=== PATIENT | female | born 1960 | race African-American/Black ===

== ENCOUNTER 2020-04-01 22:40 | Inpatient (IN) | payer MEDICARE, MEDICAID, SELFPAY ==
--- NOTE | ~2020-04-01 | XR_ITS ---
XR chest 2V DATE: 04/02/2020 00:09 INDICATION: Chest pain, shortness of breath TECHNIQUE: PA and lateral views COMPARISON: 04/09/2019 portable AP chest 04/09/2019 CT pulmonary scan FINDINGS: Mild cardiomegaly. No pulmonary infiltrate or consolidation or pleural effusion. Pulmonary vascularity appears within normal range. Status post cholecystectomy.. IMPRESSION: Cardiomegaly Reviewed, dictated and finalized at location A. IMPRESSION: Cardiomegaly
[2020-04-01 22:46] VITALS: BP 143/59; PULSE 113; RESP 13; TEMP 36.6; O2SAT 94
--- NOTE | 2020-04-01 22:47 | ED.GENADULT ---
HPI - General Adult General Chief complaint: Recheck/Abnormal Lab/Rx Stated complaint: HIGH SUGAR, FALLS, DIZZY Time Seen by Provider: 04/01/20 22:46 History of Present Illness HPI narrative: Light headedness, fatigue, sob for the past 4 months. She is concerned that her blood sugar has been high for this entire time, although she has not been checking it. She also feels that she has had a UTI for quite some time. Additionally she has a painful sore on her right ankle which will not go away. Related Data Home Medications Medication Instructions Recorded Confirmed alprazolam 2 mg PO DAILY PRN 04/02/20 04/02/20 hydrocodone-acetaminophen 1 tablet PO TID PRN 04/02/20 04/02/20 insulin glargine [Lantus U-100 80 unit SUBCUT QPM 04/02/20 04/02/20 Insulin] quetiapine 800 mg PO HS 04/02/20 04/02/20 Allergies Allergy/AdvReac Type Severity Reaction Status Date / Time No Known Allergies Allergy Unknown Unverified 04/01/20 22:42 Review of Systems Review of Systems: All systems reviewed & are unremarkable except as noted in HPI and below Constitutional: Constitutional: Reports fatigue, Denies fever(s) and Denies weakness Eyes: Eyes: Denies change in vision ENT: Reports dizziness Cardiovascular: Cardiovascular: Denies chest pain Respiratory: Respiratory: Reports dyspnea Gastrointestinal: Gastrointestinal: Denies abdominal pain, Denies nausea and Denies vomiting Genitourinary: Genitourinary: Reports nocturia and Reports dysuria Neurologic: Reports dizziness and Denies syncope [facility] Past Medical History Medical History Diabetes mellitus Peripheral neuropathy Family History Family History Mother History of blood clots Diabetes mellitus Hypertension Other Cerebrovascular accident Sibling Colon cancer Sibling Diabetes mellitus Hypertension Father Diabetes mellitus Social History Social History Alcohol intake: never Substance use: current Substance use type: marijuana Last use: 04/01/2020 Spiritual care concerns: No Exam Const: General: no acute distress, alert and ill appearing chronically Orientation/consciousness: patient oriented x3 HENMT: Head: normal to inspection Resp: Effort & Inspection: normal respiratory effort Auscultation: clear to auscultation bilaterally Cardio: Rate: tachycardic Rhythm: regular rhythm GI: GI Palp: Yes Soft to palpation and No Tenderness to palpation present (GI) Skin: General skin exam: normal color Neuro: General: patient oriented x3, moves all extremities, no focal motor deficits and CN's II-XI intact bilaterally Speech: normal speech Extrem: General: normal to inspection and no edema Course Vital Signs Vital signs: Vital Signs Temperature 36.6 C 04/01/20 22:46 Pulse Rate 113 H 04/01/20 22:46 Respiratory Rate 13 04/01/20 22:46 Blood Pressure 143/59 H 04/01/20 22:46 Pulse Oximetry 94 04/01/20 22:46 Temperature 36.4 C L 04/02/20 04:05 Pulse Rate 95 04/02/20 04:05 Respiratory Rate 20 04/02/20 04:05 Blood Pressure 108/47 L 04/02/20 04:05 Pulse Oximetry 100 04/02/20 04:05 Medical Decision Making MDM Narrative Medical decision making narrative: She has severe anemia and thrombocytopenia without any h/o bleeding. I will plan to tranfuse her and admit her for further evalutiona Medical Records Medical records reviewed: Yes I reviewed the patient's medical records. Vital Signs Vital Signs: Vital Signs Temperature 36.6 C 04/01/20 22:46 Pulse Rate 113 H 04/01/20 22:46 Respiratory Rate 13 04/01/20 22:46 Blood Pressure 143/59 H 04/01/20 22:46 Pulse Oximetry 94 04/01/20 22:46 Temperature 36.4 C L 04/02/20 04:05 Pulse Rate 95 04/02/20 04:05 Respiratory Rate 20 04/02/20 04:05 Blood Pressure 108/47 L 04/02/20
[2020-04-01 22:52] LABS: Glucose Point of Care 102 (65-105)
[2020-04-01 23:29] VITALS: BP 122/80; PULSE 99; RESP 17; O2SAT 94
--- NOTE | 2020-04-01 23:38 | ECG_ITS ---
Measurements Intervals [place] Rate: 98 P: 53 MA: 149 QRS: 19 QRSD: 93 T: 27 QT: 362 QTc: 464 Interpretive Statements SINUS RHYTHM BORDERLINE ST-T WAVE ABNORMALITY- INFERIOR LEADS BASELINE WANDER- I, II, AVR, AVL, AVF BORDERLINE ECG Electronically Signed On 04-02-2020 7:25:01 CDT by Amador Crocker D.O.
[2020-04-01 23:46] LABS: Basophils Percent Auto 0.5 % (0.2-1.2); Eosinophils Absolute Auto 0.1 K/mm3 (0-0.3); Eosinophils Percent Auto 0.8 % (0-4.4); Immature Granulocyte Absolute 0.02 K/mm3 (0.00-0.031); Immature Granulocyte Percent A 0.3 % (0-0.5); Immature Platelet Fraction Pct 2.2 % (0.9-11.2); Lymphocytes Absolute Auto 1.83 K/mm3 (0.9-3.2); Lymphocytes Percent Auto 30.7 % (18.3-44.2); Mean Corpuscular HGB Conc 26.6 g/dl (32-36); Mean Corpuscular Hemoglobin 18.9 pg (26-34); Monocytes Absolute Auto 0.4 K/mm3 (0.1-0.6); Monocytes Percent Auto 6.9 % (2.6-8.5); Neutrophils Absolute Auto 3.6 K/mm3 (1.3-6.7); Neutrophils Percent Auto 60.8 % (45.5-73.1); Nucleated Red Blood Cells Perc 0.3 % (0.0-0.2); Platelet Count Result 89 k/mm3 (150-375); Red Blood Count 2.86 M/mm3 (4.2-5.4); Red Cell Distribution Width 33.4 % (11.5-14.5)
[2020-04-01 23:55] LABS: Alanine Aminotransferase 21 U/L (4-35); Alkaline Phosphatase 123 U/L (38-126); Aspartate Amino Transferase 33 U/L (14-36); Bilirubin,Total 0.1 mg/dL (0.2-1.3); Blood Urea Nitrogen 21 mg/dL (7-17); Calcium 8.9 mg/dL (8.4-10.2); Carbon Dioxide 24 mmol/L (22-30); Chloride 109 mmol/L (98-107); Estimated CRCL calculation 54 ml/min; Estimated Glomerular Filt Rate > 60; Glucose 90 mg/dL (65-105); Sodium 141 mmol/L (137-145)
[2020-04-01] MEDS: SODIUM CHLORIDE 0.9% IV 1,000 ML 999 ML IV CONT (23:59)
[2020-04-02] VITALS (26 sets, daily range): BP systolic 105–153; BP diastolic 39–82; PULSE 84–104; RESP 12–20; TEMP 36–37.1; O2SAT 93–100; BMI 28.1
[2020-04-02 00:08] LABS: Hematocrit 20.3 % (37.0-47.0); Hemoglobin 5.4 g/dL (12.0-15.0)
[2020-04-02 00:09] LABS: Platelet Estimate Decreased (Adequate)
[2020-04-02 00:10] LABS: Macrocytosis 1+ (NORMAL); Microcytosis 1+ (NORMAL); Ovalocytes 1+ (NORMAL)
[2020-04-02 00:11] LABS: Hypochromasia 1+ (NORMAL)
[2020-04-02 00:16] LABS: Add Urine Microscopic? YES; Appearance Urine Cloudy (Clear); Bacteria Urine Trace /hpf; Bilirubin Urine Negative (Negative); Blood Urine 1+ (Negative); Color Urine Yellow (Yellow); Glucose Urine UA Negative (Negative); Ketones Urine Negative (Negative); Leukocyte Esterase Ur 3+ LEU/UL (Negative); Mucus Urine Rare /lpf; Nitrate Urine Negative (Negative); Protein Urine 1+ mg/dL (Negative); Specific Grav Ur 1.017 (1.001-1.035); Squamous Epithelial Cell Urine Many /hpf (Few); WBC Urine >75 /hpf
[2020-04-02 00:20] LABS: Troponin I < 0.012 ng/mL (0.000-0.034)
[2020-04-02 00:49] LABS: Basophils Percent Auto 0.4 % (0.2-1.2); Eosinophils Absolute Auto 0.1 K/mm3 (0-0.3); Eosinophils Percent Auto 1.1 % (0-4.4); Immature Granulocyte Absolute 0.01 K/mm3 (0.00-0.031); Immature Granulocyte Percent A 0.2 % (0-0.5); Immature Platelet Fraction Pct 1.5 % (0.9-11.2); Lymphocytes Percent Auto 32.9 % (18.3-44.2); Mean Corpuscular HGB Conc 26.7 g/dl (32-36); Mean Corpuscular Hemoglobin 19.1 pg (26-34); Mean Corpuscular Volume 71.4 fl (80-100); Monocytes Absolute Auto 0.5 K/mm3 (0.1-0.6); Monocytes Percent Auto 9.1 % (2.6-8.5); Neutrophils Absolute Auto 3.1 K/mm3 (1.3-6.7); Neutrophils Percent Auto 56.3 % (45.5-73.1); Platelet Count Result 78 k/mm3 (150-375); Red Blood Count 2.41 M/mm3 (4.2-5.4); Red Cell Distribution Width 33.2 % (11.5-14.5); White Blood Count 5.5 K/mm3 (4.5-10.0)
[2020-04-02 01:13] LABS: Iron 167 ug/dL (37-170)
[2020-04-02 01:20] LABS: Hematocrit 17.2 % (37.0-47.0); Hemoglobin 4.6 g/dL (12.0-15.0)
[2020-04-02 01:22] LABS: Percent Iron Saturation 39 % (20-50)
[2020-04-02 01:22] LABS: Microcytosis 2+ (NORMAL); Platelet Estimate Decreased (Adequate)
[2020-04-02 01:23] LABS: Hypochromasia 2+ (NORMAL)
[2020-04-02 01:25] LABS: Anisocytosis 2+ (NORMAL); Macrocytosis 1+ (NORMAL)
[2020-04-02 01:30] LABS: Immature Reticulocyte Fraction 24.9 % (3.0-15.9); Reticulocyte Hemoglobin Conten 37.5 pg (28.2-35.7); Reticulocyte Percent 0.57 % (0.7-4.3); Reticulocytes Absolute 0.01 B/L (32.2-175.7)
[2020-04-02 01:49] LABS: Ferritin 8.29 ng/mL (11.1-264)
[2020-04-02 02:11] LABS: Hematocrit 17.5 % (37.0-47.0)
[2020-04-02 02:13] LABS: Hemoglobin 4.7 g/dL (12.0-15.0)
[2020-04-02] MEDS: SODIUM CHLORIDE 0.9% IV 250 ML 30 ML IV CONT (02:48)
--- NOTE | 2020-04-02 03:15 | PC.NURSE ---
This patient, Yeny Muniz, was admitted to IMU-. Patient oriented to hospital policies and general routines including ID bracelet, bed and alarms, visiting hours, pain management, procedures, bathroom and other care routines, personal items, smoking policy, room service/diet, and visiting hours. Valuables list has been completed. Patient encouraged to report perceived risks to care and to ask questions if they do not understand what they are told or what they should do.
--- NOTE | 2020-04-02 04:18 | PC.NURSE ---
During screening, pt states she has had suicidal thoughts recently, last a couple days ago. Pt reports she has no current, organized plan. Dr Cardoza notified and is placing orders to move to icu for suicide precautions. Sitter at bedside in imu currently until transfer occurs.
--- NOTE | 2020-04-02 04:18 | PM.IMHP ---
H&P: HPI History of Present Illness Chief complaint: symptomatic anemia Narrative: This is a 60 year old Diabetic female who presented to the hospital with a complaint of 4 months of generalized weakness which has worsened over the past two weeks. Tonight she is also complaining of increased shortness of breath. She reports eight falls over the past 4 months but isn't sure if she passed out or not. She had a bloody stool a few days ago but has been constipated. She also reports having dark emesis recently. She denies using any anticoagulants, NSAIDS, or aspirin. She has no previous history of PUD or previous GI bleeds. She denies any chest pain or shortness of breath. The patient denies any abdominal pain, dysuria, hematuria or vaginal bleeding. No other complaints. The patient admitted to her nurse that she has had suicidal ideation recently. The patient was evaluated in the ER and found to have an H/H of 4.7 and 17.5. Review of Systems Review of Systems: All systems reviewed & are unremarkable except as noted in HPI and below PMFSH Past Medical History Medical History Diabetes mellitus Peripheral neuropathy Family History Family History Mother History of blood clots Diabetes mellitus Hypertension Other Cerebrovascular accident Sibling Colon cancer Sibling Diabetes mellitus Hypertension Father Diabetes mellitus Social History Social History Smoking packs per day: 1 Smoking cigarettes per day: 20.0 Years smoked: 40 Smoking pack-years: 40.00 Smoking status: Heavy tobacco smoker Tobacco type: cigarettes Alcohol intake: never Substance use: current Substance use type: marijuana Last use: 04/01/2020 Spiritual care concerns: No Comments surgical history is reviewed and noncontributory. Meds Home Medications and Allergies Home Medications Medication Instructions Recorded Confirmed Type alprazolam 2 mg PO DAILY PRN 04/02/20 04/02/20 History hydrocodone-acetaminophen 1 tablet PO TID PRN 04/02/20 04/02/20 History insulin glargine [Lantus U-100 80 unit SUBCUT QPM 04/02/20 04/02/20 History Insulin] quetiapine 800 mg PO HS 04/02/20 04/02/20 History Allergies Allergy/AdvReac Type Severity Reaction Status Date / Time No Known Allergies Allergy Unknown Unverified 04/01/20 22:42 Vital Signs Vital Signs - 24 hr 04/01/20 22:46 04/01/20 23:29 04/02/20 01:30 Temperature 36.6 C Pulse Rate 113 H 99 96 Respiratory Rate 13 17 13 Blood Pressure 143/59 H 122/80 109/39 L Pulse Oximetry 94 94 93 04/02/20 02:31 04/02/20 02:51 04/02/20 03:03 Temperature 36.6 C 37.1 C Pulse Rate 104 H 104 H 98 Respiratory Rate 19 19 14 Blood Pressure 105/44 L 105/44 L 106/54 L Pulse Oximetry 93 93 94 04/02/20 03:20 04/02/20 04:05 Temperature 36.3 C L 36.4 C L Pulse Rate 99 95 Respiratory Rate 18 20 Blood Pressure 109/41 L 108/47 L Pulse Oximetry 100 100 Exam Const: General: cooperative, alert and awake Nutritional Appearance: well nourished Orientation/consciousness: patient oriented x3 HENMT: Head: normal to inspection General nose exam: Normal external nose present Face and sinus: normal facial exam Mouth: Yes Normal oral and palatal mucosa present and Yes oropharynx normal Eyes: Pupils: Equal, round and reactive pupils present EOM: EOMs intact bilaterally Neck: Neck: supple and no JVD Thyroid: thyroid normal Lymphatic: lymphadenopathy not noted Resp: Effort & Inspection: normal respiratory effort Auscultation: clear to auscultation bilaterally Cardio: Rate: regular rate Rhythm: regular rhythm Heart sounds: no murmurs GI: Inspection: normal to inspection Auscultation: normal bowel sounds Skin: General skin exam: normal color and no rashes or lesions noted Neuro: General: patient or
[2020-04-02] MEDS: DEXTROSE 50% 25 GM/50 ML SYRINGE IV PUSH ×2 (05:30→12:00)
[2020-04-02 05:51] LABS: Glucose Point of Care 141 (65-105)
[2020-04-02 05:51] LABS: Glucose Point of Care 52 (65-105)
--- NOTE | 2020-04-02 05:54 | PC.NURSE ---
This patient, Yeny Muniz, was transferred to [ICU-9 ] on 04/02/20 at 0500 for SI precautions. Personal belongings sent with patient and placed in locked cabinet. Belongings list checked and signed with receiving [ ]. No report necessary, RN caring for pt in IMU transferred with pt. Appropriate documentation sent with patient.
[2020-04-02 11:17] LABS: Hematocrit 23.2 % (37.0-47.0)
[2020-04-02 11:39] LABS: Hemoglobin 6.7 g/dL (12.0-15.0)
[2020-04-02 11:59] LABS: Glucose Point of Care 57 (65-105)
[2020-04-02 12:21] LABS: Glucose Point of Care 56 (65-105)
[2020-04-02 12:39] LABS: Glucose Point of Care 147 (65-105)
--- NOTE | 2020-04-02 13:19 | WPDGICN ---
Assessment and Plan Assessment and plan (1) Microcytic anemia: Code(s): D50.9 - Iron deficiency anemia, unspecified Status: Acute Assessment and Plan: Patient with very profound anemia on presentation. Microcytic indices noted. No significant GI bleeding described. Although she does report a small amount of bleeding after passing hard stool secondary to constipation. This seems insufficient to account for her current anemia. Iron studies reveal of low ferritin approximately 8. However iron and% saturation is within normal limits. Hemoglobin electrophoresis will therefore be obtained in follow-up stool Hemoccult will also be obtained. Plan is for both colonoscopy an EGD on Friday after . (2) UTI (urinary tract infection): Qualifiers: Hematuria presence: with hematuria Urinary tract infection type: site unspecified Qualified Code(s): N39.0 - Urinary tract infection, site not specified; R31.9 - Hematuria, unspecified Code(s): N39.0 - Urinary tract infection, site not specified Status: Acute Assessment and Plan: Patient with active urinary tract infection. Now on antibiotics. Culture results pending (3) Diabetes mellitus: Qualifiers: Diabetes mellitus type: type 2 Diabetes mellitus usp insulin use: with terminal clerk use Diabetes mellitus complication status: without complication Qualified Code(s): E11.9 - Type 2 diabetes mellitus without complications; Z79.4 - long-term (current) use of insulin Code(s): E11.9 - Type 2 diabetes mellitus without complications Status: Chronic (4) Peripheral neuropathy: Qualifiers: Peripheral neuropathy type: polyneuropathy, unspecified Qualified Code(s): G62.9 - Polyneuropathy, unspecified Code(s): G62.9 - Polyneuropathy, unspecified Status: Chronic (5) Thrombocytopenia: Code(s): D69.6 - Thrombocytopenia, unspecified Status: Acute Assessment and Plan: Very low platelet count identified etiology for this remains unclear. She may benefit from hematology evaluation at some point. (6) Family history of malignant neoplasm of colon in first degree relative diagnosed when younger than 60 years of age: Code(s): Z80.0 - Family history of malignant neoplasm of digestive organs Status: Acute Assessment and Plan: Patient's sibling had colon cancer. For this reason colonoscopy advised in addition to the indication because of constipation, rectal blood loss period and microcytic anemia. GI Consult Note Consult date/time: 04/02/20 13:19 HPI: Yeny Muniz is a 60 year old female seen in evaluation at the request of the hospitalist service. Because of profound anemia. Patient has a history of diabetes mellitus. Over the last 4 months she reports generalized weakness. It became particularly worse over the last 2 weeks. She notes increasing shortness of breath. She states she has been somewhat constipated and on 1 occasion after passing hard stool had a small blood on wiping. She denies any other abdominal pain. She has had some dysuria and difficulty urinating. She states 5 years ago had similar presentation GI endoscopy was performed and found to be unremarkable. At that time she was also anemic. She denies any family history of sickle cell or thalassemia. She has never been told she had an ulcer. Past medical history is significant for cholecystectomy. Diabetes mellitus. Total abdominal hysterectomy. History of thyroidectomy. She reports numbness in her feet associated with her diabetes PMFSH Past Medical History Medical History Diabetes mellitus Peripheral neuropathy Family History Family History Mother History of blood clots Diabetes mellitus Hypertension Other Cerebrovascular accident Sibling Colon cancer Sibling Diabe
--- NOTE | 2020-04-02 15:17 | PM.IMPN ---
Progress Note: A&P Assessment and Plan (1) Symptomatic anemia: Code(s): D64.9 - Anemia, unspecified Status: Acute Assessment and Plan: Transfuse 2 units plus 2 units of blood Pt to have EGD and colonscopy soon (2) GI bleeding: Qualifiers: GI bleed type/associated pathology: unspecified gastrointestinal hemorrhage type Qualified Code(s): K92.2 - Gastrointestinal hemorrhage, unspecified Code(s): K92.2 - Gastrointestinal hemorrhage, unspecified Status: Acute (3) Thrombocytopenia: Code(s): D69.6 - Thrombocytopenia, unspecified Status: Acute (4) Abnormal urinalysis: Code(s): R82.90 - Unspecified abnormal findings in urine Status: Acute (5) Diabetes mellitus: Qualifiers: Diabetes mellitus type: type 2 Diabetes mellitus [facility] insulin use: with intermediate manager use Diabetes mellitus complication status: without complication Qualified Code(s): E11.9 - Type 2 diabetes mellitus without complications; Z79.4 - termite exterminator (current) use of insulin Code(s): E11.9 - Type 2 diabetes mellitus without complications Status: Chronic (6) Peripheral neuropathy: Qualifiers: Peripheral neuropathy type: polyneuropathy, unspecified Qualified Code(s): G62.9 - Polyneuropathy, unspecified Code(s): G62.9 - Polyneuropathy, unspecified Status: Chronic (7) Suicidal ideation: Code(s): R45.851 - Suicidal ideations Status: Acute Assessment and Plan: The patient has verbalized her suicidal ideation to the nursing staff. Suicide precautions (8) Tobacco dependence: Code(s): F17.200 - Nicotine dependence, unspecified, uncomplicated Status: Chronic Assessment and Plan: Computer Systems Software Architect discussed smoking cessation Subjective Date/time seen: 04/02/20 15:17 Interval history: 60 year old Diabetic female who presented to the hospital with a complaint of 4 months of generalized weakness which has worsened over the past two weeks. SEen by big data analytics lead earlier this morning transferred to ICU for sucidal ideation Pt hb was very low on admission HB 4 improved to 6 with 2 units of blood Pt to receive another 2 units of blood Pt seen by Enedina jj plan is for both colonoscopy an EGD on Friday Review of Systems Review of Systems: All systems reviewed & are unremarkable except as noted in HPI and below Exam Const: General: cooperative, alert and awake Nutritional Appearance: well nourished Orientation/consciousness: patient oriented x3 Objective Data Vital Signs Vital Signs: Vital Signs - 24 hr 04/01/20 22:46 04/01/20 23:29 04/02/20 01:30 Temperature 36.6 C Pulse Rate 113 H 99 96 Respiratory Rate 13 17 13 Blood Pressure 143/59 H 122/80 109/39 L Pulse Oximetry 94 94 93 04/02/20 02:31 04/02/20 02:51 04/02/20 03:03 Temperature 36.6 C 37.1 C Pulse Rate 104 H 104 H 98 Respiratory Rate 19 19 14 Blood Pressure 105/44 L 105/44 L 106/54 L Pulse Oximetry 93 93 94 04/02/20 03:20 04/02/20 03:27 04/02/20 04:00 Temperature 36.3 C L Pulse Rate 99 98 97 Respiratory Rate 18 Blood Pressure 109/41 L Pulse Oximetry 100 04/02/20 04:05 04/02/20 04:55 04/02/20 06:00 Temperature 36.4 C L 36.1 C L Pulse Rate 95 94 87 Respiratory Rate 20 20 15 Blood Pressure 108/47 L 112/53 L 131/63 Pulse Oximetry 100 100 100 04/02/20 06:24 04/02/20 06:40 04/02/20 07:40 Temperature 36.3 C L 36.2 C L 36.1 C L Pulse Rate 87 89 86 Respiratory Rate 12 17 20 Blood Pressure 138/64 148/80 H 139/62 Pulse Oximetry 100 100 100 04/02/20 08:00 04/02/20 08:40 04/02/20 09:52 Temperature 36.6 C Pulse Rate 88 88 88 Respiratory Rate 18 20 Blood Pressure 153/72 H 149/68 H Pulse Oximetry 100 98 04/02/20 12:00 04/02/20 13:14 04/02/20 13:29 Temperature 36.4 C 37.0 C Pulse Rate 89 92 84 Respiratory Rate 18 16 18 Blood Pressure 137/67 150/61 H 136/59 L Pulse Oximetry 100 97 100 0
[2020-04-02 15:53] LABS: Immunochemical Fecal Occult Bl Negative (N)
[2020-04-02 15:54] LABS: IFOB Positive Control Positive
[2020-04-02 16:46] LABS: Glucose Point of Care 182 (65-105)
[2020-04-02 17:43] LABS: Hematocrit 32.5 % (37.0-47.0); Hemoglobin 9.8 g/dL (12.0-15.0)
--- NOTE | 2020-04-02 18:18 | PC.NURSE ---
Dr. Houston assessed patient and states patient does not need a sitter, discussed with ICU Director and Nurse Java Web Developer Wendy. Once Dr. Ca puts in her note that the patient does not need a sitter and discontinues the order patient will be off suicide precautions.
[2020-04-02 20:43] LABS: Glucose Point of Care 184 (65-105)
[2020-04-02 23:57] LABS: Hematocrit 30.4 % (37.0-47.0); Hemoglobin 9.3 g/dL (12.0-15.0)
[2020-04-03] VITALS: BP 156/78; PULSE 93; RESP 14; O2SAT 96
[2020-04-03 02:00] VITALS: PULSE 91
[2020-04-03 04:00] VITALS: BP 136/67; PULSE 90; PULSE 93; RESP 13
[2020-04-03 05:55] LABS: Glucose Point of Care 164 (65-105)
[2020-04-03 06:00] VITALS: PULSE 90
[2020-04-03 08:00] VITALS: BP 141/74; PULSE 89; PULSE 91; RESP 23; TEMP 36.8; O2SAT 97
[2020-04-03 10:00] VITALS: PULSE 90
[2020-04-03 11:39] LABS: Glucose Point of Care 232 (65-105)
[2020-04-03 11:50] LABS: Hematocrit 31.5 % (37.0-47.0); Hemoglobin 9.6 g/dL (12.0-15.0); Immature Platelet Fraction Pct 4.1 % (0.9-11.2); Mean Corpuscular HGB Conc 30.5 g/dl (32-36); Mean Corpuscular Hemoglobin 23.7 pg (26-34); Mean Corpuscular Volume 77.8 fl (80-100); Platelet Count Result 57 k/mm3 (150-375); Red Blood Count 4.05 M/mm3 (4.2-5.4); Red Cell Distribution Width 28.9 % (11.5-14.5)
[2020-04-03] MEDS: INSULIN ASPART (*BKC) 100 UNITS/ML SUB-Q (12:03)
[2020-04-03 12:21] LABS: Alanine Aminotransferase 22 U/L (4-35); Albumin Level 3.4 g/dL (3.5-5.1); Alkaline Phosphatase 113 U/L (38-126); Aspartate Amino Transferase 31 U/L (14-36); Bilirubin,Total 0.2 mg/dL (0.2-1.3); Blood Urea Nitrogen 14 mg/dL (7-17); Calcium 8.6 mg/dL (8.4-10.2); Carbon Dioxide 25 mmol/L (22-30); Chloride 106 mmol/L (98-107); Estimated CRCL calculation 84 ml/min; Estimated Glomerular Filt Rate > 60; Glucose 210 mg/dL (65-105); Potassium 4.9 mmol/L (3.4-5.0); Sodium 136 mmol/L (137-145)
[2020-04-03] MEDS: PEG (High)/E-LYTE SOLN 4,000 ML BTL 4000 ML PO (12:29)
--- NOTE | 2020-04-03 12:42 | PM.DS ---
DS: Admitting Diagnosis Admitting Diagnosis Admitting Diagnosis: Iron deficiency anemia, unspecified DS: Discharge Diagnosis Discharge Diagnosis (1) Symptomatic anemia: Code(s): D64.9 - Anemia, unspecified Status: Acute Assessment and Plan: Pt had 4 units of blood, pt hb improved from 4, 6 to 9 pt mention to go for EGD and colonscopy [place]. PT wants to leave AMA. (2) GI bleeding: Qualifiers: GI bleed type/associated pathology: unspecified gastrointestinal hemorrhage type Qualified Code(s): K92.2 - Gastrointestinal hemorrhage, unspecified Code(s): K92.2 - Gastrointestinal hemorrhage, unspecified Status: Acute Assessment and Plan: r/o acute upper GI Bleed. SP pRBC IV transfusion. Protonix IV drip. (3) Thrombocytopenia: Code(s): D69.6 - Thrombocytopenia, unspecified Status: Acute Assessment and Plan: r/o acute hemolysis. . (4) Abnormal urinalysis: Code(s): R82.90 - Unspecified abnormal findings in urine Status: Acute Assessment and Plan: r/o acute UTI. urine culture is pending. The patient has been started on ceftriaxone IV. (5) Diabetes mellitus: Qualifiers: Diabetes mellitus type: type 2 Diabetes mellitus loss control representative insulin use: with loss control representative use Diabetes mellitus complication status: without complication Qualified Code(s): E11.9 - Type 2 diabetes mellitus without complications; Z79.4 - director of curriculum (current) use of insulin Code(s): E11.9 - Type 2 diabetes mellitus without complications Status: Chronic Assessment and Plan: accuchecks, SSI Coverage, Hypoglycemic protocol. (6) Peripheral neuropathy: Qualifiers: Peripheral neuropathy type: polyneuropathy, unspecified Qualified Code(s): G62.9 - Polyneuropathy, unspecified Code(s): G62.9 - Polyneuropathy, unspecified Status: Chronic Assessment and Plan: Resume gabapentin when appropriate. (7) Suicidal ideation: Code(s): R45.851 - Suicidal ideations Status: Acute Assessment and Plan: The patient has verbalized her suicidal ideation to the nursing staff. Suicide precautions, One on one sitter. Crisis intervention in am. I assessed pt yesterday 04/02/2020 she did not appear SI or HI. Suicide precautions stopped yesterday 04/02/2020. (8) Tobacco dependence: Code(s): F17.200 - Nicotine dependence, unspecified, uncomplicated Status: Chronic DS: Summary Time Spent with Patient Time attestation: Total time spent providing and/or coordinating discharge services:15 minutes Exam Narrative: Exam Narrative: Pt left AMA DS: Data Data Completed and Pending Labs on day of discharge: Labs from last 24 hours 04/03/20 04/03/20 04/03/20 11:36 11:36 11:30 WBC 8.0 RBC 4.05 L Hgb 9.6 L Hct 31.5 L MCV 77.8 L D MCH 23.7 L D MCHC 30.5 L RDW 28.9 H Plt Count 57 L MPV TNP % Immature Plt Fraction 4.1 Hemoglobin A % Hemoglobin A2 Quant Hemoglobin C % Hemoglobin E % Hemoglobin F Percent Hemoglobin S % Hemoglobinopathy Red Blood Count Hemoglobinopathy Hct Hemoglobinopathy Hgb Hemoglobinopathy MCV Hemoglobinopathy MCH Hemoglobinopathy RDW Hemoglobinopathy Interp Hemoglobin Other Hemoglobin Other 2 Sodium 136 L Potassium 4.9 Chloride 106 Carbon Dioxide 25 BUN 14 D Creatinine 0.70 Estim Creat Clear Calc 84 Estimated GFR > 60 Glucose 210 H POC Capillary Glucose 232 H Calcium 8.6 Total Bilirubin 0.2 AST 31 ALT 22 Alkaline Phosphatase 113 Total Protein 7.0 Albumin 3.4 L Stl Occult Blood (IFOB) Blood Type Antibody Screen Crossmatch 04/03/20 04/02/20 04/02/20 05:54 23:36 20:40 WBC RBC Hgb 9.3 L Hct 30.4 L MCV MCH MCHC RDW Plt Count MPV % Immature Plt Fraction Hemoglobin A % Hemoglobin A2 Qu
--- NOTE | 2020-04-03 13:19 | PC.NURSE ---
Patient left ICU 9 with hospital staff at 1300. Patient left AMA, paperwork signed and placed in chart. Patient oriented x3. no complaints of dizziness, shortness of breath. IVs removed without complication, patient ambulated without assist.
--- NOTE | 2020-04-03 14:16 | PC.NURSE ---
Multiple attempts made to contact Dr. Rosen to advise patient left AMA. Called office number and recording states the office is closed for lunch, and to call back, office number does not forward to [employer]. used car sales supervisor, charge nurse, Dr. Houston all notified that patient left AMA.
[2020-04-10 00:01] LABS: Hematocrit 34.1 % (35.0-45.0); MCH 23.5 pg (27.0-33.0); RDW 32.2 % (11.0-15.0); Red Blood Cell Count 4.26 Mill/uL (3.80-5.10)
== END 2020-04-03 12:45 | disposition left against medical advice (07) | DRG 812 ==
LOC: ANHED 23:03 → ANHIMU 04-02 01:38 → ANHICU 04-02 06:32 → ANHIMU 04-06 13:17
PROVIDERS: Internal Medicine Gastroenterology; Admitting Provider Family Medicine; Emergency Provider Emergency Medicine; PCP Family Medicine; Visit Provider Family Medicine
DX: D64.9 Anemia, unspecified (principal); K92.2 Gastrointestinal hemorrhage, unspecified; R45.851 Suicidal ideations; N39.0 Urinary tract infection, site not specified; D69.6 Thrombocytopenia, unspecified; E11.9 Type 2 diabetes mellitus without complications; G62.9 Polyneuropathy, unspecified; F17.210 Nicotine dependence, cigarettes, uncomplicated; Z80.0 Family history of malignant neoplasm of digestive organs
CPT/HCPCS: 36415; 36430; 71046; 80053; 81001; 82274; 82607; 82728; 82746; 82948; 83021; 83540; 83550; 84484; 85014; 85018; 85025; 85027; 85046; 85055; 86850; 86900; 86901; 86920; 87086; 87088; 93005; 96361; 96365; 99285; A9270; C9113; J0696; J1815; J7030; J7050; J7060; P9016

== ENCOUNTER 2024-07-25 16:56 | Emergency (ER) | payer MEDICARE, MEDICAID, SELFPAY ==
[2024-07-25 16:57] VITALS: BP 182/81; PULSE 94; RESP 16; TEMP 36.8; O2SAT 100
--- NOTE | 2024-07-25 18:44 | ED.PSYCH ---
HPI - Psych General Chief Complaint: Psychiatric Symptoms <Oumou Ibarra PA-C - Last Filed: 07/26/24 17:14> Stated Complaint: suicidal with alot of pain <YAIR Youngblood Last Filed: 07/26/24 17:14> Time Seen by Provider: 07/25/24 17:57 <YAIR Youngblood Last Filed: 07/26/24 17:14> Source: patient <YAIR Youngblood Last Filed: 07/26/24 17:14> Mode of arrival: wheelchair <YAIR Youngblood Last Filed: 07/26/24 17:14> Limitations: no limitations <YAIR Youngblood Last Filed: 07/26/24 17:14> History of Present Illness HPI Narrative: This is a 64 year old female that presents to the ER for suicidal ideation. Reports she lost all of her medications while moving weeks ago. She has not taken any of her chronic medications for several weeks. Reports history of depression, diabetes mellitus. Reports chronic pain for which she takes narcotics. She has previous history of self harm. Does not have an active plan. Denies homicidal ideations or hallucinations. <YAIR Youngblood Last Filed: 07/26/24 17:14> Related Data Home Medications: Home Medications Medication Instructions Recorded Confirmed alprazolam 2 mg tablet 2 mg PO DAILY PRN Anxiety 04/02/20 04/02/20 hydrocodone 7.5 mg-acetaminophen 1 tablet PO TID PRN Pain (Scale 04/02/20 04/02/20 325 mg tablet Score 4-6) insulin glargine 100 unit/mL 80 unit subcut QPM 04/02/20 04/02/20 subcutaneous solution (Lantus U-100 Insulin) quetiapine 400 mg tablet 800 mg PO HS 04/02/20 04/02/20 <YAIR Youngblood Last Filed: 07/26/24 17:14> Allergies/Adverse Reactions: Allergies Allergy/AdvReac Type Severity Reaction Status Date / Time No Known Allergies Allergy Unknown Unverified 04/01/20 22:42 <YAIR Youngblood Last Filed: 07/26/24 17:14> Review of Systems Review of Systems: CONSTITUTIONAL: Denies fever PSYCHIATRIC: Reports depression. <Oumou Ibarra PA-C - Last Filed: 07/26/24 17:14> All systems reviewed & are unremarkable except as noted in HPI and below <Oumou Ibarra PA-C - Last Filed: 07/26/24 17:14> PMFSH Past Medical History Medical History: Medical History (Updated 07/26/24 @ 02:31 by Oumou Ibarra PA-C) Diabetes mellitus Peripheral neuropathy <Oumou Ibarra PA-C - Last Filed: 07/26/24 17:14> Family History Family History: Family History Mother History of blood clots Diabetes mellitus Hypertension Other Cerebrovascular accident Sibling Colon cancer Sibling Diabetes mellitus Hypertension Father Diabetes mellitus <Oumou Ibarra PA-C - Last Filed: 07/26/24 17:14> Social History Social History: Social History Smoking packs per day: 1 Smoking cigarettes per day: 20.0 Years smoked: 40 Smoking pack-years: 40.00 Smoking status: Heavy tobacco smoker Tobacco type: cigarettes Alcohol intake: never Substance use: current Substance use type: does not use Last use: 04/01/2020 Spiritual care concerns: No <Oumou Ibarra PA-C - Last Filed: 07/26/24 17:14> Exam Narrative: GENERAL: Well-appearing, well-nourished, and in no acute distress. HEAD: Normocephalic, atraumatic. EYES: EOMI. CHEST: No respiratory distress. HEART: Regular rate EXTREMITIES: Normal range of motion. No edema. SKIN: Warm, dry, no rash. NEURO: No focal deficits. Alert and oriented x3. PSYCH: Normal mood and affect <Oumou Ibarra PA-C - Last Filed: 07/26/24 17:14> Course Course Emergency Course: Patient is medically cleared for evaluation by crisis <Oumou Ibarra PA-C - Last Filed: 07/26/24 17:14> Consultations Consultation #1: Patient evaluated by crisis. Will be voluntarily placed <Oumou Ibarra PA-C - Last Filed: 07/26/24 17:14> Date: 07/26/24 <Oumou Ibarra,
[2024-07-25 18:48] LABS: Basophils Percent Auto 0.5 % (0.2-1.2); Eosinophils Absolute Auto 0.1 K/mm3 (0-0.3); Hematocrit 35.8 % (37.0-47.0); Hemoglobin 12.2 g/dL (12.0-15.0); Immature Granulocyte Absolute 0.01 K/mm3 (0.00-0.031); Immature Granulocyte Percent A 0.2 % (0-0.5); Lymphocytes Absolute Auto 2.44 K/mm3 (0.9-3.2); Lymphocytes Percent Auto 38.8 % (18.3-44.2); Mean Corpuscular HGB Conc 34.1 g/dl (32-36); Mean Corpuscular Hemoglobin 33.5 pg (26-34); Mean Corpuscular Volume 98.4 fl (80-100); Mean Platelet Volume 11.1 fl (7.4-10.4); Monocytes Absolute Auto 0.5 K/mm3 (0.1-0.6); Monocytes Percent Auto 7.9 % (2.6-8.5); Neutrophils Absolute Auto 3.3 K/mm3 (1.3-6.7); Neutrophils Percent Auto 51.6 % (45.5-73.1); Platelet Count Result 236 k/mm3 (150-375); Red Blood Count 3.64 M/mm3 (4.2-5.4); Red Cell Distribution Width 14.1 % (11.5-14.5); White Blood Count 6.3 K/mm3 (4.5-10.0)
[2024-07-25] MEDS: HYDROcodone/acetaminophen (*CRX) 5-325 MG TABLET 1 TAB PO (18:55)
[2024-07-25 19:00] LABS: Ethanol < 10 mg/dL (<10)
[2024-07-25 19:01] LABS: Alanine Aminotransferase 15 U/L (6-35); Albumin Level 3.9 g/dL (3.5-5.1); Alkaline Phosphatase 104 U/L (38-126); Anion Gap 5 mmol/L (4-12); Aspartate Amino Transferase 19 U/L (14-36); Bilirubin,Total 0.3 mg/dL (0.2-1.3); Blood Urea Nitrogen 13 mg/dL (7-17); Calcium 9.2 mg/dL (8.4-10.2); Carbon Dioxide 29 mmol/L (22-30); Chloride 104 mmol/L (98-107); Estimated CRCL calculation 93 ml/min; Estimated Glomerular Filt Rate > 60; Glucose 219 mg/dL (65-110); Potassium 3.6 mmol/L (3.4-5.0); Sodium 138 mmol/L (137-145)
[2024-07-25 19:03] LABS: BEDSIDEPREGUCG Negative (Negative)
[2024-07-25 19:25] LABS: Influenza A QL RT-PCR Negative (Negative); Influenza B QL RT-PCR Negative (Negative); RSV RNA, RT-PCR Negative (Negative); SARS-CoV-2 RNA PCR Negative (Negative)
[2024-07-25 19:26] LABS: Amphetamine Screen Urine Negative (Negative); Barbiturate Screen Urine Negative (Negative); Benzodiazepines Screen Urine Positive (Negative); Cannabinoid Screen Urine Positive (Negative); Cocaine Screen Urine Negative (Negative); Methadone Screen Urine Negative (Negative); Opiate Screen Urine Negative (Negative); Phencyclidine Screen Urine Negative (Negative)
[2024-07-25 19:33] LABS: Thyroid Stimulating Hormone Reflex 0.468 uIU/mL (0.465-4.68)
[2024-07-25 19:41] LABS: Acetaminophen < 10 ug/mL (10-30); Salicylate < 1.0 mg/dL (2-20)
[2024-07-25 19:54] LABS: Bacteria Urine 4+ /hpf; Budding Yeast Urine Present /hpf; Mucus Urine Present /lpf; Need Manual Microscopic Reviewed; RBC Urine >100 /hpf (0-2); Squamous Epithelial Cell Urine Moderate /hpf (Few); WBC Urine >100 /hpf (0-3)
[2024-07-25 19:57] LABS: Add Urine Microscopic? YES; Appearance Urine Cloudy (Clear); Color Urine Yellow (Yellow); pH Urine 5.5 (5.0-9.0)
[2024-07-25 19:58] LABS: Glucose Urine UA 3+ mg/dL (Negative); Ketones Urine Negative (Negative); Protein Urine 3+ mg/dL (Negative); Specific Grav Ur >= 1.030 (1.001-1.035)
[2024-07-25 19:59] LABS: Bilirubin Urine Negative (Negative); Blood Urine 3+ (Negative); Nitrate Urine Negative (Negative)
[2024-07-25 20:00] LABS: Leukocyte Esterase Ur 1+ LEU/UL (Negative); Urobilinogen Urine 0.2 mg/dL (<2.0)
[2024-07-25] MEDS: FLUCONAZOLE 150 MG TABLET PO (22:10)
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
[2024-07-25] MEDS: diazePAM INJ (*CRX) 10 MG/2 ML SYRINGE 5 MG IM (23:30)
[2024-07-25] MEDS: ACETAMINOPHEN 325 MG TABLET 650 MG PO (23:30)
[2024-07-25] MEDS: CEFDINIR 300 MG CAPSULE PO (23:31)
[2024-07-26 00:38] VITALS: BP 159/58; PULSE 80; RESP 16; TEMP 36.4; O2SAT 100
--- NOTE | 2024-07-26 01:47 | PC.NURSE ---
[facility] accepting and will call back with room assignment.
[2024-07-26 02:17] LABS: Glucose Point of Care 183 mg/dl (65-105)
[2024-07-26] MEDS: diphenhydrAMINE HCl INJ 50 MG/ML VIAL 25 MG IM (02:21)
[2024-07-26] MEDS: QUEtiapine FUMARATE 100 MG TABLET 200 MG PO ×2 (02:59→03:14)
[2024-07-26] MEDS: PROCHLORPERAZINE EDISYLATE 10 MG/2 ML VIAL IM (03:13)
--- NOTE | 2024-07-26 04:08 | PC.NURSE ---
Per Christinaette, pt's motorized wheelchair cannot be used at facility. EMS here to transport pt and unable to take w/c with her. Called [employer] [facility] and left message. Will pass info to day shift charge for follow up.
== END 2024-07-26 04:36 ==
PROVIDERS: Emergency Provider Physician Assistant; PCP Family Medicine
DX: R45.851 Suicidal ideations (principal); N39.0 Urinary tract infection, site not specified; F32.A Depression, unspecified; E11.42 Type 2 diabetes mellitus with diabetic polyneuropathy; F17.210 Nicotine dependence, cigarettes, uncomplicated; Z79.4 Long term (current) use of insulin; Z79.899 Other long term (current) drug therapy; Z91.51 Personal history of suicidal behavior; Z11.52 Encounter for screening for COVID-19; Z91.148 Patient's other noncompliance with medication regimen for other reason
CPT/HCPCS: 36415; 80053; 80307; 81001; 81025; 82948; 84443; 85025; 87086; 87088; 87106; 87637; 96372; 99285; A9270; J0780; J1200; J3360

== ENCOUNTER 2024-08-18 18:56 | Observation (INO) | payer MEDICARE, MEDICAID, SELFPAY ==
--- NOTE | ~2024-08-18 | CT_ITS ---
EXAMINATION: CTA neck, CT cervical spine wo con DATE: 08/18/2024 21:41 INDICATION: Attempted strangulation TECHNIQUE: Computed tomographic angiography (CTA) of the neck was performed with 100 mL Omnipaque-350 intravenous contrast. The dose-length product was 524.74 (accession [id number]), 459.83 (accession [id number]) mGy- cm. Maximum intensity projection 3D-reconstructions were created by the technologist on a separate works tation. Multiple contiguous axial images of the cervical spine was performed without intravenous contrast tim or to CTA. COMPARISON: None. FINDINGS: The right internal carotid artery originates at the bifurcation where it is of normal caliber at its origin but then tapers gradually as it enters the carotid canal, never regaining a normal lumen. The measurement utilized for the normal distal artery lumen diameter is the presumed lumen, and correspon ds to the original lumen just at the takeoff of the internal carotid artery. No discrete dissection i s appreciated. The left internal carotid artery is of nearly normal caliber along the entirety of its course. There is 72% stenosis of the proximal right internal carotid artery relative to normal distal artery lumen diameter (NASCET criteria). There is 19% stenosis of the proximal left internal carotid artery relative to normal distal artery l umen diameter. Straightening of the normal curvature of the cervical spine is appreciated. No acute fractures are pr esent. Opacification of the posterior longitudinal ligament is identified, as well as ossification of the an terior longitudinal ligament. Within the soft tissues of the neck, bulky calcifications are identified within the right lobe of the thyroid gland, along with multiple thyroid nodules, for which follow-up thyroid ultrasound may be pe rformed. The bilateral upper lobes demonstrate centrilobular emphysematous disease, as well as subpleural bull ous disease. IMPRESSION: 1. 72% stenosis of the proximal right internal carotid artery relative to normal distal artery lumen diameter (NASCET criteria). 2. 19% stenosis of the proximal left internal carotid artery relative to normal distal artery lumen d iameter. Degenerative disease without acute fracture within the bony cervical spine. Reviewed, dictated and finalized at location A. IMPRESSION: 1. 72% stenosis of the proximal right internal carotid artery relative to reyes l distal artery lumen diameter (NASCET criteria). 2. 19% stenosis of the proximal left internal carotid artery relative to normal distal artery lumen diameter. Degenerative disease without acute fracture within the bony cervical spine.
[2024-08-18 19:17] VITALS: BP 165/75; PULSE 108; RESP 25; TEMP 36.8; O2SAT 98
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
[2024-08-18 19:54] LABS: Basophils Percent Auto 0.6 % (0.2-1.2); Eosinophils Absolute Auto 0.1 K/mm3 (0-0.3); Eosinophils Percent Auto 1.1 % (0-4.4); Hemoglobin 12.4 g/dL (12.0-15.0); Immature Granulocyte Absolute 0.01 K/mm3 (0.00-0.031); Immature Granulocyte Percent A 0.2 % (0-0.5); Lymphocytes Absolute Auto 2.66 K/mm3 (0.9-3.2); Lymphocytes Percent Auto 42.8 % (18.3-44.2); Mean Corpuscular HGB Conc 33.5 g/dl (32-36); Mean Corpuscular Volume 98.4 fl (80-100); Mean Platelet Volume 11.1 fl (7.4-10.4); Monocytes Absolute Auto 0.7 K/mm3 (0.1-0.6); Monocytes Percent Auto 11.1 % (2.6-8.5); Neutrophils Absolute Auto 2.7 K/mm3 (1.3-6.7); Neutrophils Percent Auto 44.2 % (45.5-73.1); Platelet Count Result 228 k/mm3 (150-375); Red Blood Count 3.76 M/mm3 (4.2-5.4); Red Cell Distribution Width 13.5 % (11.5-14.5); White Blood Count 6.2 K/mm3 (4.5-10.0)
[2024-08-18 20:04] LABS: Alanine Aminotransferase 26 U/L (6-35); Albumin Level 4.4 g/dL (3.5-5.1); Alkaline Phosphatase 102 U/L (38-126); Anion Gap 6 mmol/L (4-12); Aspartate Amino Transferase 29 U/L (14-36); Bilirubin,Total 0.4 mg/dL (0.2-1.3); Blood Urea Nitrogen 18 mg/dL (7-17); Calcium 9.6 mg/dL (8.4-10.2); Carbon Dioxide 28 mmol/L (22-30); Chloride 104 mmol/L (98-107); Estimated CRCL calculation 62 ml/min; Estimated Glomerular Filt Rate > 60; Glucose 68 mg/dL (65-110); Potassium 4.1 mmol/L (3.4-5.0); Sodium 138 mmol/L (137-145)
[2024-08-18 20:08] LABS: Ethanol < 10 mg/dL (<10)
[2024-08-18] MEDS: HYDROcodone/acetaminophen (*CRX) 5-325 MG TABLET 1 TAB PO (20:12)
[2024-08-18] MEDS: LORazepam (*CRX) 1 MG TABLET PO (20:12)
[2024-08-18 20:36] LABS: Influenza A QL RT-PCR Negative (Negative); Influenza B QL RT-PCR Negative (Negative); RSV RNA, RT-PCR Negative (Negative); SARS-CoV-2 RNA PCR Negative (Negative)
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
[2024-08-18 21:40] LABS: Add Urine Microscopic? YES; Appearance Urine Turbid (Clear); Bacteria Urine 4+ /hpf; Bilirubin Urine Negative (Negative); Blood Urine 3+ (Negative); Color Urine Yellow (Yellow); Glucose Urine UA Negative (Negative); Ketones Urine Trace mg/dL (Negative); Leukocyte Esterase Ur 3+ LEU/UL (Negative); Need Manual Microscopic Reviewed; Nitrate Urine Positive (Negative); Protein Urine 3+ mg/dL (Negative); RBC Urine >100 /hpf (0-2); Specific Grav Ur 1.021 (1.001-1.035); Squamous Epithelial Cell Urine Many /hpf (Few); WBC Urine >100 /hpf (0-3)
[2024-08-18 21:47] LABS: Amphetamine Screen Urine Negative (Negative); Barbiturate Screen Urine Negative (Negative); Benzodiazepines Screen Urine Positive (Negative); Cannabinoid Screen Urine Positive (Negative); Cocaine Screen Urine Negative (Negative); Methadone Screen Urine Negative (Negative); Opiate Screen Urine Positive (Negative); Phencyclidine Screen Urine Negative (Negative)
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
[2024-08-18 23:29] VITALS: BP 150/76; PULSE 103; RESP 20; TEMP 36.6; O2SAT 97
[2024-08-19] VITALS (10 sets, daily range): BP systolic 135–175; BP diastolic 57–90; PULSE 90–107; RESP 14–22; TEMP 36.4–37.2; O2SAT 91–99; BMI 24.1
--- NOTE | 2024-08-19 00:10 | ADMGEN ---
This patient, Yeny Muniz, was admitted to Intensive Care Unit-6. Patient/family oriented to hospital policies and general routines including ID bracelet, bed and alarms, visiting hours, pain management, procedures, bathroom and other care routines, personal items, smoking policy, room service/diet, and visiting hours. Information on how to activate the Rapid Response Team has been discussed. Patient/Family are encouraged to report perceived risks to care and to ask questions if they do not understand what they are told or what they should do.
[2024-08-19] MEDS: ALPRAZolam (*CRX) 0.5 MG TABLET 2 MG PO ×2 (01:30→20:23)
[2024-08-19 03:56] LABS: Glucose Point of Care 162 mg/dl (65-105)
[2024-08-19 07:25] LABS: MRSA (PCR) NOT DETECTED (NOT DETECTE)
--- NOTE | 2024-08-19 09:41 | ECG_ITS ---
Test Date: 2024-08-19 09:56:32 Measurements Intervals [place] Rate: 94 P: 59 WV: 159 QRS: 6 QRSD: 85 T: 55 QT: 360 QTc: 451 Interpretive Statements SINUS RHYTHM LOW QRS VOLTAGE OTHERWISE WITHIN NORMAL LIMITS WARNING: DATA QUALITY MAY AFFECT INTERPRETATION No previous ECG available for comparison Electronically Signed On 08-19-2024 16:05:47 CDT by Edgar Bueno M.D.
[2024-08-19] MEDS: SERTRALINE HCL 50 MG TABLET PO (10:02)
[2024-08-19] MEDS: HYDROcodone/acetaminophen (*CRX) 10-325 MG TABLET 1 TAB PO ×2 (10:02→20:23)
[2024-08-19] MEDS: ONDANSETRON INJ 4 MG/2 ML VIAL IV PUSH (10:03)
--- NOTE | 2024-08-19 12:34 | PM.IMPN ---
Progress Note: A&P Assessment and Plan (1) UTI (urinary tract infection): Qualifiers: Hematuria presence: with hematuria Urinary tract infection type: site unspecified Qualified Code(s): N39.0 - Urinary tract infection, site not specified; R31.9 - Hematuria, unspecified Code(s): N39.0 - Urinary tract infection, site not specified Status: Acute Assessment and Plan: Asymptomatic bacteriuria No evidence to treat (2) Suicidal ideation: Code(s): R45.851 - Suicidal ideations Status: Acute Assessment and Plan: Need psychiatric evaluation Active suicidal ideation (3) Suicide attempt: Code(s): T14.91XA - Suicide attempt, initial encounter Status: Acute (4) Tobacco dependence: Code(s): F17.200 - Nicotine dependence, unspecified, uncomplicated Status: Chronic (5) Diabetes mellitus: Qualifiers: Diabetes mellitus complication status: without complication Diabetes mellitus care home insulin use: with keno terminal operator use Diabetes mellitus type: type 2 Qualified Code(s): E11.9 - Type 2 diabetes mellitus without complications; Z79.4 - local company intermodal truck driver (current) use of insulin Code(s): E11.9 - Type 2 diabetes mellitus without complications Status: Chronic Assessment and Plan: Mild Sliding scale Accu-Chek a.c. HS Subjective Date/time seen: 08/19/24 12:34 Interval history: Patient reports of SI and wants to end her life . Denies any ches t pain,SOB or urinary symptoms like dysuria, or discharge. Even though UA shows UTI but currently she has no indications for the treating UTI. The patient is medically cleared and needs to be evaluated by psychiatry/crisis team Review of Systems Review of Systems: suicidal attempt All systems reviewed & are unremarkable except as noted in HPI and below Exam Narrative: patient is laying in cot Const: General: comfortable, no acute distress, well developed, alert, awake and average body habitus Nutritional Appearance: average body habitus Orientation/consciousness: patient oriented x3 HENMT: Head: normal to inspection, normocephalic and atraumatic Ears: hearing grossly normal bilaterally Face/Nose/Sinus: normal facial exam Face and sinus: normal facial exam Eyes: General: appearance normal, both eyes and all related structures Pupils: Equal, round and reactive pupils present EOM: EOMs intact bilaterally Neck: Neck: full ROM, no lymphadenopathy and no JVD Thyroid: thyroid normal Lymphatic: no lymphadenopathy noted Resp: Effort & Inspection: normal respiratory effort and able to speak in complete sentences Auscultation: clear to auscultation bilaterally Cardio: Jugular venous distension: no JVD Rate: regular rate Rhythm: regular rhythm Heart sounds: S1 normal heart sound present and S2 normal heart sound present : General: Yes deferred Skin: Rashes: no rashes Wounds: no wounds Neuro: General: patient oriented x3 and CN's II-XI intact bilaterally Cranial nerves: Yes CN's II-XII intact bilaterally and Yes Equal, round and reactive pupils present Cognition (Neuro): normal cognition Speech: normal speech Gait exam (Neuro): Normal gait present Motor exam (neuro): 5/5 motor strength present throughout Extrem: General: normal to inspection, full ROM, no joint enlargement and no pedal edema Psych: Appearance: grossly normal and well kempt Mental Status: mental status grossly normal Speech and movement: Clear speech present Affect: Blunted affect present Attitude: cooperative Thought process: Normal thought process present Insight: Good insight present (Psych) Judgement: Limited judgement present (Psych) Objective Data Vital Signs Vital Signs: Vital Signs - 24 hr 08/18/24 19:17 08/18/24 23:29 08/19/24 01:17 Temperature 98.3 F 98 F Pulse Rate 108 H 103 H Respiratory Rate 25 H 20 Blood Pressure 165/75 H 150/76 H Pulse Oximetry 98 97 93 Oxygen Delivery Room A
--- NOTE | 2024-08-19 16:26 | PC.NURSE ---
Spoke with Rosita from [facility]. Updates given on patients current status including vitals, assessment and baseline. To receive call back if patient is accepted.
--- NOTE | 2024-08-19 17:54 | PC.NURSE ---
Rosita [facility] called back to report patient has been accepted to facility. Current patient status discussed.
--- NOTE | 2024-08-19 18:14 | PC.NURSE ---
Rosita with [facility] called for refer of information. Rosita stated that patient will go to [facility] with the Dx of unspecified depressive disorder. The admitting physician will be Dr. Saldana. [facility] will initiate call for nurse to nurse report.
[2024-08-19] MEDS: INSULIN GLARGINE (*BKC) 100 UNITS/ML 30 UNITS SUB-Q (18:34)
[2024-08-19 18:40] LABS: Glucose Point of Care 239 mg/dl (65-105)
--- NOTE | 2024-08-19 18:40 | PC.NURSE ---
Spoke with Neville with [facility] at 1840 via telephone call. Ángela still in need of medical clearance statement. RN to have clearance statement faxed to [facility] at #[phone].
--- NOTE | 2024-08-19 18:43 | PC.NURSE ---
[facility] called at 1843 to confirm patient in still of bed placement for mental health. Updates on patient condition given. [facility] to continue to work on bed placement if accepted.
--- NOTE | 2024-08-19 20:03 | PC.NURSE ---
Call placed to Eufemia Bender NP regarding patient's positive urine cultures (gram negative bacilli) at this time. GRADER TENDER made aware and will put in new orders.
[2024-08-19] MEDS: QUEtiapine FUMARATE 100 MG TABLET 200 MG PO (20:23)
[2024-08-19] MEDS: ATORVASTATIN 20 MG TABLET PO (20:23)
[2024-08-19] MEDS: SULFAMETHOXAZOLE/TRIMETHOPRIM 800/160 MG DS TABLET 1 TAB PO (20:45)
--- NOTE | 2024-08-19 21:40 | PC.NURSE ---
Pt to transfer to [facility] for further psychiatric treatment and evaluation. Report called to NITHIN Ralph ([phone]). Pt will be in room [id number]. Dr. Saldana is accepting physician.
--- NOTE | 2024-08-19 22:36 | PC.NURSE ---
Patient transported to [facility] at this time via [id number] vehicle. Call placed to Nurse Ralph with ETA and updated information.
--- NOTE | 2024-08-19 23:28 | PC.NURSE ---
SonAneudy notified of patient's transfer to [facility]. Son without concerns and verbalized understanding.
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
== END 2024-08-19 22:36 | disposition other institution (70) ==
LOC: ANHED 22:45 → ANHICU 23:30
PROVIDERS: Admitting Provider Internal Medicine; Emergency Provider Emergency Medicine; PCP Hospitalist; Visit Provider Internal Medicine
DX: T14.91XA Suicide attempt, initial encounter (principal); X83.8XXA Intentional self-harm by other specified means, initial encounter; R82.71 Bacteriuria; R31.9 Hematuria, unspecified; F17.210 Nicotine dependence, cigarettes, uncomplicated; E11.9 Type 2 diabetes mellitus without complications; G62.9 Polyneuropathy, unspecified; F32.9 Major depressive disorder, single episode, unspecified; Z79.4 Long term (current) use of insulin; Z79.899 Other long term (current) drug therapy; Z20.822 Contact with and (suspected) exposure to COVID-19
CPT/HCPCS: 36415; 70498; 72125; 80053; 80307; 81001; 82077; 82948; 84443; 85025; 87077; 87086; 87186; 87637; 87641; 93005; 96365; 96375; 99285; A9270; G0378; J0696; J1815; J2405; Q9967

== ENCOUNTER 2024-09-02 22:28 | Emergency (ER) | payer MEDICARE, MEDICAID, SELFPAY ==
--- NOTE | ~2024-09-02 | XR_ITS ---
EXAMINATION: XR shoulder LT min 2V DATE: 09/02/2024 23:06 INDICATION: Left shoulder pain post fall TECHNIQUE: AP internally and externally rotated, AP oblique externally rotated and transscapular Y vi ews of the left shoulder were obtained. COMPARISON: None FINDINGS: Normal alignment. No fracture.Mild glenohumeral osteoarthritis. Moderate to severe acromioclavicular osteoarthritis. Soft tissues are unremarkable. IMPRESSION: Mild left glenohumeral and moderate to severe acromioclavicular osteoarthritis. Reviewed, dictated and finalized at location A.
--- NOTE | ~2024-09-02 | XR_ITS ---
EXAMINATION: XR chest 1V portable DATE: 09/02/2024 23:06 INDICATION: Lethargic TECHNIQUE: frontal view of the chest was obtained. COMPARISON: Chest radiograph dated 04/02/2020 FINDINGS: The lungs are clear with no focal airspace opacities, pulmonary edema, pleural effusion or pneumothor ax. The cardiomediastinal silhouette is normal. Cholecystectomy clips in right upper quadrant. Unchan ged tiny density right breast likely biopsy marker. Mild thoracic spondylosis with bridging osteophyt es at multiple levels consistent with diffuse idiopathic skeletal hyperostosis (DISH). IMPRESSION: 1. No acute cardiopulmonary disease. Reviewed, dictated and finalized at location A.
--- NOTE | ~2024-09-02 | CT_ITS ---
EXAMINATION: CT brain wo con DATE: 09/02/2024 23:13 INDICATION: Fall and lethargy TECHNIQUE: Computed tomography (CT) of the head was performed without intravenous contrast. Sagittal and coronal reconstructions were performed. The mA was adjusted according to patient size. Iterative reconstruction technique was employed. The dose-length product was 605.33 mGy-cm. COMPARISON: head CT dated 08/20/2014 FINDINGS: No fracture. No acute intracranial hemorrhage, acute infarction or abnormal extra axial fluid collect ion. Multiple regions of encephalomalacia in the prominent associated decreased white matter attenuat ion in the right frontal and parietal lobes consistent with chronic infarcts in the right anterior ce rebral artery vascular distribution. Ventricles are normal and symmetric. No mass/mass effect. The or bits, paranasal sinuses and mastoid air cells are normal. IMPRESSION: 1. No fracture or acute intracranial process. 2. Extensive chronic infarcts in the right frontal and parietal lobe in the right anterior cerebral a rtery vascular distribution. Reviewed, dictated and finalized at location A. IMPRESSION: 1. No fracture or acute intracranial process. 2. Extensive chronic infarcts in the right frontal and parietal lobe in the rig ht anterior cerebral artery vascular distribution.
--- NOTE | ~2024-09-02 | XR_ITS ---
EXAMINATION: XR hip LT 2V w AP pelvis DATE: 09/02/2024 23:06 INDICATION: Fall TECHNIQUE: Anteroposterior view of the pelvis and anteroposterior and frog-leg lateral views of the l eft hip were obtained. COMPARISON: CT dated 08/12/2018 FINDINGS: Bone alignment is normal. No fracture or suspected osteonecrosis. Mild osteoarthritis of the bilatera l hip and sacroiliac joints. Severe bilateral osteoarthritis at L4-L5. IMPRESSION: 1. No acute osseous abnormality. Reviewed, dictated and finalized at location A.
[2024-09-02 22:29] VITALS: BP 158/59; PULSE 81; RESP 14; TEMP 36.6; O2SAT 100
--- NOTE | 2024-09-02 22:42 | ECG_ITS ---
Test Date: 2024-09-02 23:17:45 Measurements Intervals [place] Rate: 78 P: 72 AR: 183 QRS: 55 QRSD: 93 T: 75 QT: 412 QTc: 470 Interpretive Statements SINUS RHYTHM Compared to ECG 08/19/2024 09:56:32 No significant changes Electronically Signed On 09-03-2024 15:31:42 CDT by Hedy Mercado M.D.
--- NOTE | 2024-09-03 00:02 | ED.FALL ---
HPI - Fall General Chief Complaint: Fall Stated Complaint: 3 FALLS IN LAST 1 HOUR AT FACILITY History of Present Illness HPI Narrative: 64-year-old female presents via EMS from [facility] for falling out of her wheelchair 3 times a day. Patient states she slipped out of her wheelchair 3 times, each time while attempting to adjust herself with her to get comfortable. She states each time she landed on her left hip and left shoulder. She is reporting pain to her left hip and shoulder. She did not hit her head or lose consciousness. She denies neck pain or back pain or other injuries acquired. The patient does present very lethargic and states this secondary to taking her nighttime medications. Medication list reviewed which reveals [place] 10 mg and Seroquel . Patient also notes she has chronic weakness to her left arm secondary to prior CVA. She denies EtOH or drug use. Related Data Home Medications Medication Instructions Recorded Confirmed alprazolam 2 mg tablet 2 mg PO BID PRN Anxiety 04/02/20 08/19/24 insulin glargine 100 unit/mL 30 unit subcut QPM 04/02/20 08/19/24 subcutaneous solution (Lantus U-100 Insulin) atorvastatin 20 mg tablet 20 mg PO HS 08/19/24 08/19/24 cholecalciferol (vitamin D3) 25 25 mcg PO DAILY 08/19/24 08/19/24 mcg (1,000 unit) capsule cyanocobalamin (vitamin B-12) 1,000 mcg PO DAILY 08/19/24 08/19/24 1,000 mcg tablet hydrocodone 10 mg-acetaminophen 1 tablet PO Q6H PRN Pain (Scale 08/19/24 08/19/24 325 mg tablet Score 7-10) ondansetron 4 mg disintegrating 4 mg PO Q8H PRN Nausea And Vomiting 08/19/24 08/19/24 tablet quetiapine 200 mg tablet 200 mg PO HS 08/19/24 08/19/24 sertraline 50 mg tablet 50 mg PO DAILY 08/19/24 08/19/24 Allergies Allergy/AdvReac Type Severity Reaction Status Date / Time No Known Allergies Allergy Unknown Unverified 04/01/20 22:42 Review of Systems Review of Systems: All systems reviewed & are unremarkable except as noted in HPI and below PMFSH Past Medical History Medical History (Updated 09/03/24 @ 01:42 by Mandi Robin PA-C) Diabetes mellitus Peripheral neuropathy Family History Family History Mother History of blood clots Diabetes mellitus Hypertension Other Cerebrovascular accident Sibling Colon cancer Sibling Diabetes mellitus Hypertension Father Diabetes mellitus Social History Social History Smoking packs per day: 1 Smoking cigarettes per day: 20.0 Years smoked: 40 Smoking pack-years: 40.00 Smoking status: Heavy tobacco smoker Tobacco type: cigarettes Alcohol intake: never Substance use: never Substance use type: marijuana Last use: 04/01/2020 Do You Feel Safe in your Home?: No Lack of Transportation: No Lack of Food: Never True Current Housing: Decline to Answer Concerned About Future Housing: Decline to Answer Difficulty Paying Gas/Electric Bills: Decline to Answer Difficulty Paying for Meds: Decline to Answer Currently Unemployed: Decline to Answer Education: Decline to Answer Difficulty w/ Childcare or Family Care: Decline to Answer Spiritual care concerns: No Exam Narrative: GENERAL: well-nourished, and in no acute distress. lethargic HEAD: Normocephalic, atraumatic. EYES: PERRLA and EOMI. ENT: Nares clear, no rhinorrhea or epistaxis. Mucous membranes moist. NECK: No midline cervical spinous tenderness, step-offs or deformities BACK: no thoracolumbar spinous tenderness, step-offs or deformities CHEST: Clear to auscultation. No respiratory distress. HEART: Regular rate and rhythm. No murmur heard. Normal peripheral pulses. ABDOMEN: Soft, nontender, nondistended, normal active bowel sounds. EXTREMITIES: diffuse tenderness to the left shoulder with no obvious deformity, edema or ecchymosis. Lidocaine patch overlying left shoulder. No tenderness remainder of upper extremities. Radial pulse 2 +. Sensation intact. full passive range of motion of shoulder And elbow. LUE weakness secondary to prior CVA. Tenderness to the lateral aspect of the left hip with no obvious deformity Or edema. Full passive and active range of motion of hip and knee. DP pulse 2 +. Sensation intact. SKIN: Warm, dry, no rash. NEURO: No focal deficits. Alert and oriented x3 Course Vital Signs Vital signs: Vital Signs Temperature 97.8 F 10/24/24 22:29 Pulse Rate 81 09/02/24 22:29 Respiratory Rate 14 09/02/24 22:29 Blood Pressure 158/59 H 09/02/24 22:29 Pulse Oximetry 100 09/02/24 22:29 Oxygen Delivery Room Air 09/02/24 22:29 Temperature 97.8 F 09/02/24 22:29 Pulse Rate 66 09/03/24 01:52 Respiratory Rate 15 09/03/24 01:52 Blood Pressure 116/62 09/03/24 01:52 Pulse Oximetry 100 09/03/24 01:52 Oxygen Delivery Room Air 09/02/24 22:29 MDM - Fall MDM Narrative Medical decision making narrative: 64-year-old female presents emergency department via EMS after slipping out of her wheelchair 3 times a day attempting to adjust herself. Each time she did not hit her head or lose consciousness. She is presenting with pain to the left shoulder and left hip. Vitals are stable. Upon evaluation she has no obvious deformity. She does appear very lethargic and is attributing this to her nighttime medications consisting of G[place]t 10 mg and Seroquel. Given lethargy, will broaden workup to include CT brain, chest x-ray, labs, ETOH and UDS. CBC without leukocytosis, there is baseline anemia with a hemoglobin of 11.7 and normal MCV. Chemistries are largely unremarkable. UA is indicative of a urinary tract infection with 21-50 wbc's and positive nitrites. Patient does admit to dysuria, will treat with Keflex. Urine culture pending. UDS positive for benzodiazepines and cannabinoids. She is prescribed Xanax. ETOH less than 10, CK normal at 63. CT brain without acute findings. Chest x-ray, left hip and left shoulder without acute findings. Patient was updated on workup and was given strict ED return precautions. All questions answered. She is discharged in stable condition. Lab Data 09/03/24 01:26 09/02/24 23:43 Labs: Lab Results 09/02/24 09/02/24 09/03/24 Range/Units 23:43 23:44 01:26 WBC 4.8 (4.5-10.0) K/mm3 RBC 3.64 L (4.2-5.4) M/mm3 Hgb 11.7 L (12.0-15.0) g/dL Hct 35.4 L (37.0-47.0) % MCV 97.3 (80-100) fl MCH 32.1 (26-34) pg MCHC 33.1 (32-36) g/dl RDW 12.8 (11.5-14.5) % Plt Count 262 (150-375) k/mm3 MPV 10.2 (7.4-10.4) fl Immature Gran % (Auto) 0.2 (0-0.5) % Neut % (Auto) 31.4 L (45.5-73.1) % Lymph % (Auto) 58.8 H (18.3-44.2) % [place] % (Auto) 7.5 (2.6-8.5) % Eos % (Auto) 1.7 (0-4.4) % Baso % (Auto) 0.4 (0.2-1.2) % Lymph # (Auto) 2.82 (0.9-3.2) K/mm3 [place] # (Auto) 0.4 (0.1-0.6) K/mm3 Eos # (Auto) 0.1 (0-0.3) K/mm3 Baso # (Auto) 0.0 (0.0-0.1) K/mm3 Abs Immat Gran (auto) 0.01 (0.00-0.031) K/mm3 Absolute Neuts (auto) 1.5 (1.3-6.7) K/mm3 Absolute Nucleated RBC 0.000 (0.0-0.012) K/mm3 Nucleated RBC % 0.0 (0.0-0.2) % Sodium 138 (137-145) mmol/L Potassium 3.8 (3.4-5.0) mmol/L Chloride 103 (98-107) mmol/L Carbon Dioxide 26 (22-30) mmol/L Anion Gap 9 (4-12) mmol/L BUN 19 H (7-17) mg/dL Creatinine 0.70 (0.7-1.0) mg/dL Estim Creat Clear Calc 70 ml/min Estimated GFR > 60 (59 - ) Glucose 180 H (65-110) mg/dL Calcium 9.3 (8.4-10.2) mg/dL Total Bilirubin 0.4 (0.2-1.3) mg/dL AST 25 (14-36) U/L ALT 22 (6-35) U/L Alkaline Phosphatase 89 (38-126) U/L Total Creatine Kinase 63 (30-135) U/L Total Protein 8.0 (6.3-8.2) g/dL Albumin 4.1 (3.5-5.1) g/dL Urine Color Yellow (Yellow) Urine Appearance Cloudy H (Clear) Urine pH 5.5 (5.0-9.0) Ur Specific [place] 1.028 (1.001-1.035) Urine Protein 1+ H (Negative) mg/dL Urine Glucose (UA) 3+ H (Negative) mg/dL Urine Ketones Trace H (Negative) mg/dL Ur Blood (Man) Negative (Negative) Urine Nitrate Positive H (Negative) Urine Bilirubin Negative (Negative) Urine Urobilinogen 1.0 (<2.0) mg/dL Leukocyte Esterase Rfl 1+ H (Negative) OCTAVIO/UL Urine RBC 0-2 (0-2) /hpf Urine WBC 21-50 H (0-3) /hpf Ur Squamous Epith Cells Occasional (Few) /hpf Urine Bacteria 4+ H /hpf Urine Casts 0-2 Urine Opiates Screen Negative (Negative) Urine Methadone Screen Negative (Negative) Ur Barbiturates Screen Negative (Negative) Ur Phencyclidine Scrn Negative (Negative) Ur Amphetamine Screen Negative (Negative) U Benzodiazepines Scrn Positive A (Negative) Urine Cocaine Screen Negative (Negative) U Cannabinoids Screen Positive A (Negative) Ethyl Alcohol < 10 (<10) mg/dL Discharge Plan Discharge Clinical Impression: Fall Qualifiers: Encounter type: initial encounter Qualified Code(s): W19.XXXA - Unspecified fall, initial encounter Contusion of left shoulder Qualifiers: Encounter type: initial encounter Qualified Code(s): S40.012A - Contusion of left shoulder, initial encounter Contusion of hip, left Qualifiers: Encounter type: initial encounter Qualified Code(s): S70.02XA - Contusion of left hip, initial encounter Patient Disposition: [facility] Residential/Asst Living Condition: Stable Instructions: Antibiotic Form, Contusion in Adults (ED) Prescriptions: No Action insulin glargine [Lantus U-100 Insulin] 100 unit/mL solution 30 unit subcut QPM alprazolam 2 mg tablet 2 mg PO BID PRN (Reason: Anxiety) atorvastatin 20 mg tablet 20 mg PO HS cyanocobalamin (vitamin B-12) 1,000 mcg Tablet 1,000 mcg PO DAILY cholecalciferol (vitamin D3) 25 mcg (1,000 unit) Capsule 25 mcg PO DAILY quetiapine 200 mg tablet 200 mg PO HS hydrocodone-acetaminophen 10-325 mg tablet 1 tablet PO Q6H PRN (Reason: Pain (Scale Score 7-10)) ondansetron 4 mg tablet,disintegrating 4 mg PO Q8H PRN (Reason: Nausea And Vomiting) sertraline 50 mg tablet 50 mg PO DAILY Follow-up/Referrals: Johnny Ferguson MD [Primary Care Provider] -
[2024-09-03 00:07] LABS: Add Urine Microscopic? YES; Appearance Urine Cloudy (Clear); Bacteria Urine 4+ /hpf; Bilirubin Urine Negative (Negative); Blood Urine Negative (Negative); Color Urine Yellow (Yellow); Glucose Urine UA 3+ mg/dL (Negative); Ketones Urine Trace mg/dL (Negative); Leukocyte Esterase Ur 1+ LEU/UL (Negative); Nitrate Urine Positive (Negative); Non Pathogenic Casts 0-2; Protein Urine 1+ mg/dL (Negative); RBC Urine 0-2 /hpf (0-2); Specific Grav Ur 1.028 (1.001-1.035); Squamous Epithelial Cell Urine Occasional /hpf (Few); WBC Urine 21-50 /hpf (0-3); pH Urine 5.5 (5.0-9.0)
[2024-09-03 00:33] LABS: Creatine Kinase 63 U/L (30-135)
[2024-09-03 00:34] LABS: Ethanol < 10 mg/dL (<10)
[2024-09-03 00:47] LABS: Amphetamine Screen Urine Negative (Negative); Barbiturate Screen Urine Negative (Negative); Benzodiazepines Screen Urine Positive (Negative); Cannabinoid Screen Urine Positive (Negative); Cocaine Screen Urine Negative (Negative); Methadone Screen Urine Negative (Negative); Opiate Screen Urine Negative (Negative); Phencyclidine Screen Urine Negative (Negative)
[2024-09-03 01:31] LABS: Basophils Percent Auto 0.4 % (0.2-1.2); Eosinophils Absolute Auto 0.1 K/mm3 (0-0.3); Eosinophils Percent Auto 1.7 % (0-4.4); Hematocrit 35.4 % (37.0-47.0); Hemoglobin 11.7 g/dL (12.0-15.0); Immature Granulocyte Absolute 0.01 K/mm3 (0.00-0.031); Immature Granulocyte Percent A 0.2 % (0-0.5); Lymphocytes Absolute Auto 2.82 K/mm3 (0.9-3.2); Lymphocytes Percent Auto 58.8 % (18.3-44.2); Mean Corpuscular HGB Conc 33.1 g/dl (32-36); Mean Corpuscular Hemoglobin 32.1 pg (26-34); Mean Corpuscular Volume 97.3 fl (80-100); Mean Platelet Volume 10.2 fl (7.4-10.4); Monocytes Absolute Auto 0.4 K/mm3 (0.1-0.6); Monocytes Percent Auto 7.5 % (2.6-8.5); Neutrophils Absolute Auto 1.5 K/mm3 (1.3-6.7); Neutrophils Percent Auto 31.4 % (45.5-73.1); Platelet Count Result 262 k/mm3 (150-375); Red Blood Count 3.64 M/mm3 (4.2-5.4); Red Cell Distribution Width 12.8 % (11.5-14.5); White Blood Count 4.8 K/mm3 (4.5-10.0)
[2024-09-03 01:50] LABS: Alanine Aminotransferase 22 U/L (6-35); Albumin Level 4.1 g/dL (3.5-5.1); Alkaline Phosphatase 89 U/L (38-126); Anion Gap 9 mmol/L (4-12); Aspartate Amino Transferase 25 U/L (14-36); Bilirubin,Total 0.4 mg/dL (0.2-1.3); Blood Urea Nitrogen 19 mg/dL (7-17); Calcium 9.3 mg/dL (8.4-10.2); Carbon Dioxide 26 mmol/L (22-30); Chloride 103 mmol/L (98-107); Estimated CRCL calculation 70 ml/min; Estimated Glomerular Filt Rate > 60; Glucose 180 mg/dL (65-110); Potassium 3.8 mmol/L (3.4-5.0); Sodium 138 mmol/L (137-145)
[2024-09-03 01:52] VITALS: BP 116/62; PULSE 66; RESP 15; O2SAT 100
--- NOTE | 2024-09-03 02:39 | PC.NURSE ---
Report called to [facility] [place]. No questions. EMS arrived for transport.
[2024-09-03 02:57] VITALS: BP 142/82; PULSE 68; RESP 15; O2SAT 98
== END 2024-09-03 02:58 ==
PROVIDERS: Emergency Provider Physician Assistant; PCP Hospitalist
DX: S70.02XA Contusion of left hip, initial encounter (principal); S40.012A Contusion of left shoulder, initial encounter; E11.42 Type 2 diabetes mellitus with diabetic polyneuropathy; F17.210 Nicotine dependence, cigarettes, uncomplicated; Z79.4 Long term (current) use of insulin; Z79.899 Other long term (current) drug therapy; W05.0XXA Fall from non-moving wheelchair, initial encounter
CPT/HCPCS: 36415; 70450; 71045; 73030; 73502; 80053; 80307; 81001; 82077; 82550; 85025; 87077; 87086; 87186; 93005; 99284

== ENCOUNTER 2024-09-24 16:01 | Observation (INO) | payer MEDICARE, MEDICAID, SELFPAY ==
[2024-09-24] VITALS (7 sets, daily range): BP systolic 125–173; BP diastolic 64–75; PULSE 88–99; RESP 16–20; TEMP 36.3–36.4; O2SAT 97–100; BMI 22.4
--- NOTE | ~2024-09-24 | XR_ITS ---
CHEST RADIOGRAPH, PA AND LATERAL CLINICAL HISTORY: cp . COMPARISON: 09/02/2024 and 04/02/2020 TECHNIQUE: PA and lateral views of the chest. FINDINGS Prominence of the right hilum is redemonstrated, unchanged dating back to 04/02/2020. The remainder of the cardiomediastinal silhouette is otherwise unremarkable. The lungs are clear. Visualized osseous structures and soft tissues are unremarkable. IMPRESSION: No focal infiltrate or effusion. Reviewed, dictated and finalized at location A. S SCREEN TENDER
--- NOTE | 2024-09-24 16:07 | ECG_ITS ---
Test Date: 2024-09-24 16:21:47 Measurements Intervals [place] Rate: 95 P: 61 MO: 170 QRS: 20 QRSD: 87 T: 66 QT: 348 QTc: 438 Interpretive Statements SINUS RHYTHM BASELINE WANDER- V4 NORMAL ECG Compared to ECG 09/02/2024 23:17:45 No significant changes Electronically Signed On 09-24-2024 16:31:11 BALANCE AND HAIRS[employer]ING ASSEMBLER by Amador Crocker D.O.
[2024-09-24 16:40] LABS: Basophils Percent Auto 0.5 % (0.2-1.2); Eosinophils Absolute Auto 0.1 K/mm3 (0-0.3); Eosinophils Percent Auto 0.8 % (0-4.4); Hematocrit 34.8 % (37.0-47.0); Hemoglobin 11.6 g/dL (12.0-15.0); Immature Granulocyte Absolute 0.01 K/mm3 (0.00-0.031); Immature Granulocyte Percent A 0.2 % (0-0.5); Lymphocytes Percent Auto 35.5 % (18.3-44.2); Mean Corpuscular HGB Conc 33.3 g/dl (32-36); Mean Corpuscular Hemoglobin 32.6 pg (26-34); Mean Corpuscular Volume 97.8 fl (80-100); Mean Platelet Volume 11.1 fl (7.4-10.4); Monocytes Absolute Auto 0.5 K/mm3 (0.1-0.6); Monocytes Percent Auto 7.7 % (2.6-8.5); Neutrophils Absolute Auto 3.4 K/mm3 (1.3-6.7); Neutrophils Percent Auto 55.3 % (45.5-73.1); Platelet Count Result 231 k/mm3 (150-375); Red Blood Count 3.56 M/mm3 (4.2-5.4); Red Cell Distribution Width 12.8 % (11.5-14.5); White Blood Count 6.2 K/mm3 (4.5-10.0)
[2024-09-24 17:10] LABS: INR 0.9; Prothrombin Time 12.3 Seconds (11.1-14.7)
[2024-09-24 17:11] LABS: Partial Thromboplastin Time 20.4 Seconds (22.3-36.8)
[2024-09-24 17:49] LABS: Troponin I < 0.012 ng/mL (0.000-0.034)
--- NOTE | 2024-09-24 17:52 | ED_ITS ---
HPI - Chest Pain General Chief Complaint: Chest Pain <YAIR Perez Last Filed: 09/24/24 21:42> Stated Complaint: CP <YAIR Perez Last Filed: 09/24/24 21:42> Time Seen by Provider: 09/24/24 16:58 <YAIR Perez Last Filed: 09/24/24 21:42> Source: patient and RN notes reviewed <YAIR Perez Last Filed: 09/24/24 21:42> Mode of arrival: EMS <YARI Perez Filed: 09/24/24 21:42> Limitations: no limitations <YAIR Perez Filed: 09/24/24 21:42> History of Present Illness HPI narrative: Patient is a 64 y/o female who presents to the ED via EMS with report of chest pain. Per nursing report, patient had been residing at [facility]. She reportedly became irate with staff today. She states she was not being allowed to use her electric wheelchair. Patient reportedly signed herself out AMA from the long-term. She then apparently refused to leave the facility so PD/EMS was called. Patient began c/o CP and was brought here for further evaluation. Patient admits she only had the CP while she was upset. The long-term reportedly placed a no trespassing order on the patient and she is not allowed to return to this facility. Patient states she has no other family or anywhere else to go. <YAIR Perez Last Filed: 09/24/24 21:42> Related Data Home Medications: Home Medications Medication Instructions Recorded Confirmed insulin glargine 100 unit/mL 20 unit subcut QPM 04/02/20 09/25/24 subcutaneous solution (Lantus U-100 Insulin) atorvastatin 20 mg tablet 20 mg PO HS 08/19/24 09/24/24 cholecalciferol (vitamin D3) 25 25 mcg PO DAILY 08/19/24 09/24/24 mcg (1,000 unit) capsule cyanocobalamin (vitamin B-12) 1,000 mcg PO DAILY 08/19/24 09/24/24 1,000 mcg tablet ondansetron 4 mg disintegrating 4 mg PO Q8H PRN Nausea And Vomiting 08/19/24 09/24/24 tablet gabapentin 300 mg capsule 300 mg PO Q12H 09/24/24 09/24/24 sertraline 100 mg tablet 100 mg PO DAILY 09/24/24 09/24/24 quetiapine 300 mg tablet 300 mg PO HS 09/25/24 09/25/24 <Nannette Holland PA-C - Last Filed: 09/24/24 21:42> Allergies/Adverse Reactions: Allergies Allergy/AdvReac Type Severity Reaction Status Date / Time acetaminophen [From Tylenol] AdvReac Gastrointestinal Verified 09/24/24 22:53 Upset <Nannette Holland PA-C - Last Filed: 09/24/24 21:42> Review of Systems Review of Systems: All systems reviewed & are unremarkable except as noted in HPI. <Nannette Holland PA-C - Last Filed: 09/24/24 21:42> All systems reviewed & are unremarkable except as noted in HPI and below <Nannette Holland PA-C - Last Filed: 09/24/24 21:42> [facility] Past Medical History Medical History: Medical History Anxiety and depression Bipolar disorder Cerebrovascular accident Gastroesophageal reflux disease Hyperlipidemia Insulin dependent type 2 diabetes mellitus Peripheral neuropathy Suicide attempt Tobacco dependence <Nannette Holland PA-C - Last Filed: 09/24/24 21:42> Surgical History Surgical History: Surgical History History of appendectomy History of benign breast biopsy History of cholecystectomy History of hysterectomy History of partial thyroidectomy History of right below knee amputation History of surgical removal of ganglion cyst History of tubal ligation <Nannette Holland PA-C - Last Filed: 09/24/24 21:42> Family History Family History: Family History Mother History of blood clots Diabetes mellitus Hypertension Other No problems noted. Sibling Colon cancer Sibling Diabetes mellitus Hypertension Father Diabetes mellitus <Nannette Holland PA-C - Last Filed: 09/24/24 21:42> Social History Social History: Social History (Updated 09/25/24 @ 05:28 by Daniela Coelho PA-C) Social History: Surrogate medical decision maker: The patient refuses to name a surrogate medical decision maker and states that she has no one. Code status: Full code. Smoking packs per day: 1 Smoking cigarettes per day: 20.0 Years smoked: 40 Smoking pack-years: 40.00 Smoking status: Current every day smoker Tobacco type: cigarettes Alcohol intake: never Substance use: current Substance use type: marijuana Last use: 09/22/24 Do You Feel Safe in your Home?: No Lack of Transportation: No Lack of Food: Never True Current Housing: I Do Not Have Housing Concerned About Future Housing: YES Difficulty Paying Gas/Electric Bills: Decline to Answer Difficulty Paying for Meds: Decline to Answer Currently Unemployed: Decline to Answer Education: Decline to Answer Difficulty w/ Childcare or Family Care: Decline to Answer Spiritual care concerns: No <Nannette Holland PA-C - Last Filed: 09/24/24 21:42> Exam Narrative: GENERAL: Appears older than stated age, well-nourished, non-toxic, in no acute distress. HEAD: Normocephalic, atraumatic. RESPIRATORY: Airway patent, respirations nonlabored. Clear to auscultation bilaterally, no rales, rhonchi, wheezing. CARDIOVASCULAR: Regular rate and rhythm without murmurs, rubs, or gallops. MUSCULOSKELETAL: Moves all extremities. No gross deformities. R BKA SKIN: Warm, dry, normal color. NEURO: A&O X3. Speech clear. PSYCHIATRIC: Appropriate mood and affect. Normal interaction. <Nannette Holland PA-C - Last Filed: 09/24/24 21:42> Course ICT HELP DESK OFFICER/PA Physician Supervision For this patient encounter, I reviewed the ICT HELP DESK OFFICER or PA documentation, treatment plan, and medical decision making and/or I had [id number] time with this patient. I performed all aspects of the MDM as documented. <Lina Rankin MD - Last Filed: 09/30/24 12:16> Vital Signs Vital signs: Vital Signs Temperature 97.4 F L 09/24/24 16:20 Pulse Rate 93 09/24/24 16:20 Respiratory Rate 17 09/24/24 16:20 Blood Pressure 144/75 H 09/24/24 16:20 Pulse Oximetry 100 09/24/24 16:20 Oxygen Delivery Room Air 09/24/24 16:20 Temperature 97.8 F 09/28/24 13:45 Pulse Rate 86 09/28/24 13:45 Respiratory Rate 16 09/28/24 13:45 Blood Pressure 118/67 09/28/24 13:45 Pulse Oximetry 97 09/28/24 13:45 Oxygen Delivery Room Air 09/28/24 08:00 <Nannette Holland PA-C - Last Filed: 09/24/24 21:42> Vital Signs Temperature 97.4 F L 09/24/24 16:20 Pulse Rate 93 09/24/24 16:20 Respiratory Rate 17 09/24/24 16:20 Blood Pressure 144/75 H 09/24/24 16:20 Pulse Oximetry 100 09/24/24 16:20 Oxygen Delivery Room Air 09/24/24 16:20 Temperature 97.8 F 09/28/24 13:45 Pulse Rate 86 09/28/24 13:45 Respiratory Rate 16 09/28/24 13:45 Blood Pressure 118/67 09/28/24 13:45 Pulse Oximetry 97 09/28/24 13:45 Oxygen Delivery Room Air 09/28/24 08:00 <Lina Rankin MD - Last Filed: 09/30/24 12:16> MDM - Chest Pain MDM Narrative Medical decision making narrative: Patient presented to ED with chest pain, reportedly signed herself out of her long-term today. Vital signs are stable upon arrival. Patient in no acute distress. EKG is unremarkable. No concerning ST changes. Baseline Troponin is undetectable. Will continue to trend. CXR is clear. No signs of fluid overload. Patient with hx of HLD, DM. HEART score = 2. Remainder of basic laboratory studies are unremarkable. Unfortunately, patient not able to return to NH. Will need additional NH placement. Does not have any family that is able to take care of her. Does not have money for a hotel or other living arrangements. Care coordination was consulted but advised unable to place patient tonight. Will need to be admitted for placement. Discussed case with BRITT Cheatham hospitalist, accepted patient for admission. Pat ieshima in agreement plan. Care coordination consult placed. <Nannette Holland PA-C - Last Filed: 09/24/24 21:42> Differential Diagnosis Differential diagnosis: Likely atypical chest pain, costochondritis, chest pain and other <Lina Rankin MD - Last Filed: 09/30/24 12:16> Medical Records Data Attestation: I reviewed the patient's medical records. <Nannette Holland PA-C - Last Filed: 09/24/24 21:42> Lab Data Attestation: I reviewed the patient's lab results. <Nannette Holland PA-C - Last Filed: 09/24/24 21:42> Result diagrams: 09/25/24 04:27 09/25/24 04:27 <Nannette Holland PA-C - Last Filed: 09/24/24 21:42> Labs: Lab Results 09/24/24 09/24/24 Range/Units 16:36 17:22 WBC 6.2 (4.5-10.0) K/mm3 RBC 3.56 L (4.2-5.4) M/mm3 Hgb 11.6 L (12.0-15.0) g/dL Hct 34.8 L (37.0-47.0) % MCV 97.8 (80-100) fl MCH 32.6 (26-34) pg MCHC 33.3 (32-36) g/dl RDW 12.8 (11.5-14.5) % Plt Count 231 (150-375) k/mm3 MPV 11.1 H (7.4-10.4) fl Immature Gran % (Auto) 0.2 (0-0.5) % Neut % (Auto) 55.3 (45.5-73.1) % Lymph % (Auto) 35.5 (18.3-44.2) % [place] % (Auto) 7.7 (2.6-8.5) % Eos % (Auto) 0.8 (0-4.4) % Baso % (Auto) 0.5 (0.2-1.2) % Lymph # (Auto) 2.20 (0.9-3.2) K/mm3 [place] # (Auto) 0.5 (0.1-0.6) K/mm3 Eos # (Auto) 0.1 (0-0.3) K/mm3 Baso # (Auto) 0.0 (0.0-0.1) K/mm3 Abs Immat Gran (auto) 0.01 (0.00-0.031) K/mm3 Absolute Neuts (auto) 3.4 (1.3-6.7) K/mm3 Absolute Nucleated RBC 0.000 (0.0-0.012) K/mm3 Nucleated RBC % 0.0 (0.0-0.2) % PT 12.3 (11.1-14.7) Seconds INR 0.9 APTT 20.4 L (22.3-36.8) Seconds Sodium 139 (137-145) mmol/L Potassium 4.6 (3.4-5.0) mmol/L Chloride 106 (98-107) mmol/L Carbon Dioxide 29 (22-30) mmol/L Anion Gap 4 (4-12) mmol/L BUN 18 H (7-17) mg/dL Creatinine 0.70 (0.7-1.0) mg/dL Estim Creat Clear Calc 70 ml/min Estimated GFR > 60 (59 - ) Glucose 154 H (65-110) mg/dL Hemoglobin A1c 8.8 H (<5.7) % Calcium 9.5 (8.4-10.2) mg/dL Total Bilirubin 0.6 (0.2-1.3) mg/dL AST 30 (14-36) U/L ALT 29 (6-35) U/L Alkaline Phosphatase 117 (38-126) U/L Troponin I < 0.012 (0.000-0.034) ng/mL Total Protein 8.0 (6.3-8.2) g/dL Albumin 4.2 (3.5-5.1) g/dL Lipase 221 (23-300) U/L <Nannette Holland PA-C - Last Filed: 09/24/24 21:42> Lab Results 09/24/24 09/24/24 Range/Units 16:36 17:22 WBC 6.2 (4.5-10.0) K/mm3 RBC 3.56 L (4.2-5.4) M/mm3 Hgb 11.6 L (12.0-15.0) g/dL Hct 34.8 L (37.0-47.0) % MCV 97.8 (80-100) fl MCH 32.6 (26-34) pg MCHC 33.3 (32-36) g/dl RDW 12.8 (11.5-14.5) % Plt Count 231 (150-375) k/mm3 MPV 11.1 H (7.4-10.4) fl Immature Gran % (Auto) 0.2 (0-0.5) % Neut % (Auto) 55.3 (45.5-73.1) % Lymph % (Auto) 35.5 (18.3-44.2) % [place] % (Auto) 7.7 (2.6-8.5) % Eos % (Auto) 0.8 (0-4.4) % Baso % (Auto) 0.5 (0.2-1.2) % Lymph # (Auto) 2.20 (0.9-3.2) K/mm3 [place] # (Auto) 0.5 (0.1-0.6) K/mm3 Eos # (Auto) 0.1 (0-0.3) K/mm3 Baso # (Auto) 0.0 (0.0-0.1) K/mm3 Abs Immat Gran (auto) 0.01 (0.00-0.031) K/mm3 Absolute Neuts (auto) 3.4 (1.3-6.7) K/mm3 Absolute Nucleated RBC 0.000 (0.0-0.012) K/mm3 Nucleated RBC % 0.0 (0.0-0.2) % PT 12.3 (11.1-14.7) Seconds INR 0.9 APTT 20.4 L (22.3-36.8) Seconds Sodium 139 (137-145) mmol/L Potassium 4.6 (3.4-5.0) mmol/L Chloride 106 (98-107) mmol/L Carbon Dioxide 29 (22-30) mmol/L Anion Gap 4 (4-12) mmol/L BUN 18 H (7-17) mg/dL Creatinine 0.70 (0.7-1.0) mg/dL Estim Creat Clear Calc 70 ml/min Estimated GFR > 60 (59 - ) Glucose 154 H (65-110) mg/dL Hemoglobin A1c 8.8 H (<5.7) % Calcium 9.5 (8.4-10.2) mg/dL Total Bilirubin 0.6 (0.2-1.3) mg/dL AST 30 (14-36) U/L ALT 29 (6-35) U/L Alkaline Phosphatase 117 (38-126) U/L Troponin I < 0.012 (0.000-0.034) ng/mL Total Protein 8.0 (6.3-8.2) g/dL Albumin 4.2 (3.5-5.1) g/dL Lipase 221 (23-300) U/L <Lina Rankin MD - Last Filed: 09/30/24 12:16> Imaging Data Attestation: I personally reviewed and interpreted this imaging study as follows: <Nannette Holland PA-C - Last Filed: 09/24/24 21:42> Radiologist's impression: ITS Impressions Chest X-Ray 09/24/24 16:55 IMPRESSION: No focal infiltrate or effusion. <Nannette Holland PA-C - Last Filed: 09/24/24 21:42> ECG Data EKG #1: Attestation: I personally reviewed and interpreted this ECG as follows: <Nannette Holland PA-C - Last Filed: 09/24/24 21:42> ECG completion date: 09/24/24 <Nannette Holland PA-C - Last Filed: 09/24/24 21:42> ECG completion time: 16:21 <Nannette Holland PA-C - Last Filed: 09/24/24 21:42> EKG Interpretation: normal rate (95), sinus rhythm, no ST changes and other (wander in V4) <Nannette Holland PA-C - Last Filed: 09/24/24 21:42> Critical Care Time Critical Care Time Critical Care Time: No <Lina Rankin MD - Last Filed: 09/30/24 12:16> Discharge Plan Discharge Clinical Impression: Atypical chest pain, Homelessness <Nannette Holland PA-C - Last Filed: 09/24/24 21:42> Patient Disposition: Still a Patient <Nannette Holland PA-C - Last Filed: 09/24/24 21:42> Condition: Stable <Nannette Holland PA-C - Last Filed: 09/24/24 21:42> Quality HEART score for chest pain patients History: slightly suspicious <Nannette Holland PA-C - Last Filed: 09/24/24 21:42> ECG: normal <Nannette Holland PA-C - Last Filed: 09/24/24 21:42> Age: > 45 and < 65 years <Nannette Holland PA-C - Last Filed: 09/24/24 21:42> Risk factors: 1 or 2 risk factors <Nannette Holland PA-C - Last Filed: 09/24/24 21:42> Troponin: < or = to 1x normal limit <Nannetet Holland PA-C - Last Filed: 09/24/24 21:42> Heart score: 2 <Nannette Holland PA-C - Last Filed: 09/24/24 21:42> 2 <Lina Rankin MD - Last Filed: 09/30/24 12:16>
[2024-09-24 18:08] LABS: Alanine Aminotransferase 29 U/L (6-35); Albumin Level 4.2 g/dL (3.5-5.1); Alkaline Phosphatase 117 U/L (38-126); Anion Gap 4 mmol/L (4-12); Aspartate Amino Transferase 30 U/L (14-36); Bilirubin,Total 0.6 mg/dL (0.2-1.3); Blood Urea Nitrogen 18 mg/dL (7-17); Calcium 9.5 mg/dL (8.4-10.2); Carbon Dioxide 29 mmol/L (22-30); Chloride 106 mmol/L (98-107); Estimated CRCL calculation 70 ml/min; Estimated Glomerular Filt Rate > 60; Glucose 154 mg/dL (65-110); Lipase 221 U/L (23-300); Potassium 4.6 mmol/L (3.4-5.0); Sodium 139 mmol/L (137-145)
[2024-09-24] MEDS: HYDROcodone/acetaminophen (*CRX) 5-325 MG TABLET 1 TAB PO (18:48)
--- NOTE | 2024-09-24 19:11 | PC.NURSE ---
Report given to Yusef WELLER, all questions answered
--- NOTE | 2024-09-24 19:55 | P.HP_ITS ---
H&P: HPI History of Present Illness Date/Time: 09/24/24 19:55 Chief Complaint: Chest pain. Narrative: This is a 64-year-old female smoker with hypertension, hyperlipidemia, insulin dependent type 2 diabetes mellitus, depression, anxiety, and bipolar disorder who presented to the emergency department via EMS place of chest pain. The patient provides the following history. She has been at [facility] in [place] for sometime however was angry at them today about not being able to use her electric wheelchair and she signed out from their facility against medical advice. She then refused to leave the facility after signing the form and they called the police who then in turn called EMS to bring her to the hospital as she said she had chest pain. At this time she is not having any chest pain and reports that it was only when she was upset. She denies associated syncope, near syncope, nausea, vomiting, sweats, and calf pain. In the ED: She was afebrile on arrival with stable vital signs. CBC and CMP were pretty unremarkable and comparable to prior labs. Initial troponin was negative. EKG showed sinus rhythm without ST segment changes. Chest x-ray was clear. She was given aspirin 324 mg and a [place] and is being admitted in this setting to rule out acute coronary syndrome and for placement as she is not allowed back at [facility]. Review of Systems Review of Systems: 12 systems were reviewed and are negativ e except for as per HPI. [facility] Past Medical History Medical History Anxiety and depression Bipolar disorder Cerebrovascular accident Gastroesophageal reflux disease Hyperlipidemia Insulin dependent type 2 diabetes mellitus Peripheral neuropathy Suicide attempt Tobacco dependence Surgical History Surgical History History of appendectomy History of benign breast biopsy History of cholecystectomy History of hysterectomy History of partial thyroidectomy History of right below knee amputation History of surgical removal of ganglion cyst History of tubal ligation Family History Family History Mother History of blood clots Diabetes mellitus Hypertension Other No problems noted. Sibling Colon cancer Sibling Diabetes mellitus Hypertension Father Diabetes mellitus Social History Social History (Updated 09/25/24 @ 05:28 by Daniela Coelho PA-C) Social History: Surrogate medical decision maker: The patient refuses to name a surrogate medical decision maker and states that she has no one. Code status: Full code. Smoking packs per day: 1 Smoking cigarettes per day: 20.0 Years smoked: 40 Smoking pack-years: 40.00 Smoking status: Current every day smoker Tobacco type: cigarettes Alcohol intake: never Substance use: current Substance use type: marijuana Last use: 09/22/24 Do You Feel Safe in your Home?: No Lack of Transportation: No Lack of Food: Never True Current Housing: I Do Not Have Housing Concerned About Future Housing: YES Difficulty Paying Gas/Electric Bills: Decline to Answer Difficulty Paying for Meds: Decline to Answer Currently Unemployed: Decline to Answer Education: Decline to Answer Difficulty w/ Childcare or Family Care: Decline to Answer Spiritual care concerns: No Meds Home Medications and Allergies Home Medications Medication Instructions Recorded Confirmed Type alprazolam 2 mg tablet 2 mg PO BID PRN Anxiety 04/02/20 09/24/24 History insulin glargine 100 unit/mL 20 unit subcut QPM 04/02/20 09/25/24 History subcutaneous solution (Lantus U-100 Insulin) atorvastatin 20 mg tablet 20 mg PO HS 08/19/24 09/24/24 History cholecalciferol (vitamin D3) 25 25 mcg PO DAILY 08/19/24 09/24/24 History mcg (1,000 unit) capsule cyanocobalamin (vitamin B-12) 1,000 mcg PO DAILY 08/19/24 09/24/24 History 1,000 mcg tablet hydrocodone 10 mg-acetaminophen 1 tablet PO Q6H PRN Pain (Scale 08/19/24 09/24/24 History 325 mg tablet Score 7-10) ondansetron 4 mg disintegrating 4 mg PO Q8H PRN Nausea And Vomiting 08/19/24 09/24/24 History tablet gabapentin 300 mg capsule 300 mg PO Q12H 09/24/24 09/24/24 History sertraline 100 mg tablet 100 mg PO DAILY 09/24/24 09/24/24 History quetiapine 300 mg tablet 300 mg PO HS 09/25/24 09/25/24 History Allergies Allergy/AdvReac Type Severity Reaction Status Date / Time acetaminophen [From Tylenol] AdvReac Gastrointestinal Verified 09/24/24 22:53 Upset Vital Signs Vital Signs - 24 hr 09/24/24 16:31 09/24/24 16:20 09/24/24 16:30 Temperature 97.4 F L Pulse Rate 93 93 Respiratory Rate 17 Blood Pressure 144/75 H Pulse Oximetry 100 100 Oxygen Delivery Room Air Room Air 09/24/24 17:37 09/24/24 18:48 Temperature Pulse Rate 99 94 Respiratory Rate 20 16 Blood Pressure 173/73 H 125/66 Pulse Oximetry 100 100 Oxygen Delivery Exam Narrative: General: Nontoxic-appearing female sitting up in bed. Weight: 65 kg. BMI: 22.4. HEENT: PERRL, EOMI. Sclera anicteric. Oral mucosa moist. Neck: Supple. Respiratory: Lungs are clear to auscultation bilaterally. Cardiovascular: Regular rate and rhythm with S1-S2. Gastrointestinal: Abdomen is soft, nontender, and nondistended with positive bowel sounds. Skin: Warm and dry. Extremities: No cyanosis, clubbing, or edema. Radial and pedal pulses intact. Status post right [id number] amputation Neurological: Alert. Cranial nerves 2-12 are grossly intact. Residual left- sided weakness from prior stroke. Psychiatric: Cooperative with appropriate mood. H&P: Results Labs Labs: Short CBC 09/24/24 Range/Units 16:36 WBC 6.2 (4.5-10.0) K/mm3 Hgb 11.6 L (12.0-15.0) g/dL Hct 34.8 L (37.0-47.0) % Plt Count 231 (150-375) k/mm3 BMP 09/24/24 17:22 Sodium 139 Potassium 4.6 Chloride 106 Carbon Dioxide 29 BUN 18 H Creatinine 0.70 Glucose 154 H Calcium 9.5 Cardiac Enzymes 09/24/24 Range/Units 17:22 Troponin I < 0.012 (0.000-0.034) ng/mL Liver Function 09/24/24 Range/Units 17:22 Total Bilirubin 0.6 (0.2-1.3) mg/dL AST 30 (14-36) U/L ALT 29 (6-35) U/L Alkaline Phosphatase 117 (38-126) U/L Albumin 4.2 (3.5-5.1) g/dL Imaging Chest X-Ray 09/24/24 16:55 IMPRESSION: No focal infiltrate or effusion. Assessment and Plan Assessment and plan (1) Chest pain: Code(s): R07.9 - Chest pain, unspecified Status: Acute (2) Homeless: Code(s): Z59.00 - Homelessness unspecified Status: Acute (3) Hyperlipidemia: Code(s): E78.5 - Hyperlipidemia, unspecified Status: Acute (4) Insulin dependent type 2 diabetes mellitus: Code(s): E11.9 - Type 2 diabetes mellitus without complications; Z79.4 - terminal operations supervisor (current) use of insulin Status: Acute (5) Psychiatric illness: Code(s): F99 - Mental disorder, not otherwise specified Status: Acute (6) Tobacco dependence: Code(s): F17.200 - Nicotine dependence, unspecified, uncomplicated Status: Chronic Plan The patient presented to the emergency department for evaluation of chest pain as detailed in HPI. Labs, imaging, EKG, and all reports were personally reviewed. The chest pain occurred when she was upset and has not returned. Initial troponin was normal an EKG was without acute findings. Likely this was related to stress of the situation however she will be monitored on telemetry and troponins will be trended. Echocardiogram has been ordered as well and if that is abnormal or if she has increasing chest pain, a Cardiology consult would be appropriate consult would be prudent. She is not [facility] back at [facility] after signing out against medical advice and reports not having any family or friends to stay with. Care coordination consulted as she will need placement. Blood pressures been stable aside from one reading in the 170 systolic and these will be monitored closely. Continue basal insulin. Initiate sliding scale insulin, Accu-Cheks, and hypoglycemic protocol. She denies current harmful and suicidal thoughts although her [place] score was high according to the nurse given fairly recent history of suicide attempt. It is not felt as though she is at high risk for suicide at this time. Smoking cessation is encouraged. Her home medications will be reviewed and resumed as appropriate. Findings and treatment plan were discussed with the patient. Questions were solicited and answered to satisfaction. The patient's medical management will be taken over by the hospitalist team in a.m. Quality VTE Prophylaxis VTE prophylaxis: pharmacologic ordered The patient has been admitted under observation status. Hospitalist MIPS Advance Care Plan I have confirmed that the patient's Advanced Care Plan is present, code status is documented, or surrogate decision maker is listed in patient medical record.: Yes Medication Reconciliation I have utilized all available resources to obtain, update and review the patients current medications (includes all prescriptions, OTC, herbals, cannabis, and nutritional supplements).: Yes
--- NOTE | 2024-09-24 20:08 | PC.NURSE ---
RN called Son and Daughter both state not available to pick this patient up at this time. Will inform provider.
[2024-09-24 22:53] LABS: Troponin I < 0.012 ng/mL (0.000-0.034)
--- NOTE | 2024-09-24 23:21 | PC.NURSE ---
This patient, Yeny Muniz, was admitted to IMU Room 205-02. Patient/family oriented to hospital policies and general routines including ID bracelet, bed and alarms, visiting hours, pain management, procedures, bathroom and other care routines, personal items, smoking policy, room service/diet, and visiting hours. Information on how to activate the Rapid Response Team has been discussed. Patient/Family are encouraged to report perceived risks to care and to ask questions if they do not understand what they are told or what they should do.
[2024-09-24 23:25] LABS: Hemoglobin A1C 8.8 % (<5.7)
[2024-09-24 23:28] LABS: Glucose Point of Care 179 mg/dl (65-105)
[2024-09-25] VITALS (9 sets, daily range): BP systolic 113–144; BP diastolic 53–74; PULSE 77–90; RESP 16; TEMP 36.4–36.7; O2SAT 96–100
[2024-09-25 05:02] LABS: Basophils Percent Auto 0.7 % (0.2-1.2); Eosinophils Absolute Auto 0.1 K/mm3 (0-0.3); Eosinophils Percent Auto 1.4 % (0-4.4); Hematocrit 34.2 % (37.0-47.0); Hemoglobin 10.9 g/dL (12.0-15.0); Immature Granulocyte Absolute 0.01 K/mm3 (0.00-0.031); Immature Granulocyte Percent A 0.2 % (0-0.5); Lymphocytes Percent Auto 51.8 % (18.3-44.2); Mean Corpuscular HGB Conc 31.9 g/dl (32-36); Mean Corpuscular Hemoglobin 32.2 pg (26-34); Mean Corpuscular Volume 100.9 fl (80-100); Monocytes Absolute Auto 0.5 K/mm3 (0.1-0.6); Monocytes Percent Auto 10.4 % (2.6-8.5); Neutrophils Absolute Auto 1.6 K/mm3 (1.3-6.7); Neutrophils Percent Auto 35.5 % (45.5-73.1); Platelet Count Result 208 k/mm3 (150-375); Red Blood Count 3.39 M/mm3 (4.2-5.4); Red Cell Distribution Width 12.8 % (11.5-14.5); White Blood Count 4.4 K/mm3 (4.5-10.0)
[2024-09-25 05:18] LABS: Anion Gap 5 mmol/L (4-12); Blood Urea Nitrogen 18 mg/dL (7-17); Calcium 9.2 mg/dL (8.4-10.2); Carbon Dioxide 27 mmol/L (22-30); Chloride 106 mmol/L (98-107); Estimated CRCL calculation 70 ml/min; Estimated Glomerular Filt Rate > 60; Glucose 172 mg/dL (65-110); Potassium 3.6 mmol/L (3.4-5.0); Sodium 138 mmol/L (137-145)
[2024-09-25 05:59] LABS: Troponin I < 0.012 ng/mL (0.000-0.034)
[2024-09-25 08:07] LABS: Glucose Point of Care 178 mg/dl (65-105)
[2024-09-25] MEDS: CYANOCOBALAMIN 1,000 MCG TABLET 1000 MCG PO (08:56)
[2024-09-25] MEDS: GABAPENTIN 300 MG CAPSULE PO (08:57)
[2024-09-25] MEDS: CHOLECALCIFEROL 1,000 UNITS TABLET 1000 UNITS PO (08:57)
[2024-09-25] MEDS: SERTRALINE HCL 50 MG TABLET 100 MG PO (08:57)
[2024-09-25 11:43] LABS: Glucose Point of Care 233 mg/dl (65-105)
--- NOTE | 2024-09-25 13:02 | P.PNIM_ITS ---
Progress Note: A&P Assessment and Plan (1) Chest pain: Code(s): R07.9 - Chest pain, unspecified Status: Acute (2) Homeless: Code(s): Z59.00 - Homelessness unspecified Status: Acute (3) Hyperlipidemia: Code(s): E78.5 - Hyperlipidemia, unspecified Status: Acute (4) Insulin dependent type 2 diabetes mellitus: Code(s): E11.9 - Type 2 diabetes mellitus without complications; Z79.4 - termite renewal inspector (current) use of insulin Status: Acute (5) Psychiatric illness: Code(s): F99 - Mental disorder, not otherwise specified Status: Acute (6) Tobacco dependence: Code(s): F17.200 - Nicotine dependence, unspecified, uncomplicated Status: Chronic Plan This is a 64-year-old female smoker with hypertension, hyperlipidemia, insulin dependent type 2 diabetes mellitus, depression, anxiety, and bipolar disorder who presented to the emergency department via EMS place of chest pain. The patient provides the following history. She has been at [facility] in [place] for sometime however was angry at them today about not being able to use her electric wheelchair and she signed out from their facility against medical advice. She then refused to leave the facility after signing the form and they called the police who then in turn called EMS to bring her to the hospital as she said she had chest pain. At this time she is not having any chest pain and reports that it was only when she was upset. She denies associated syncope, near syncope, nausea, vomiting, sweats, and calf pain. In the ED: She was afebrile on arrival with stable vital signs. CBC and CMP were pretty unremarkable and comparable to prior labs. Initial troponin was negative. EKG showed sinus rhythm without ST segment changes. Chest x-ray was clear. She was given aspirin 324 mg and a [place] and is being admitted in this setting to rule out acute coronary syndrome and for placement as she is not allowed back at [facility]. ACS ruled out with negative troponins. Chest pain is atypical. Echocardiogram pending. Disposition: She is not allowed back at [facility] after signing out against medical advice and reports not having any family or friends to stay with. Care coordination consulted as she will need placement. Hypertension home medication Diabetes home medication Peripheral neuropathy History of stroke Recent center ideation psych admission DVT prophylaxis SCDs Subjective Date/time seen: 09/25/24 13:02 Interval history: No further chest pain. Denies any shortness of breath. Chest pain was on the left side of the chest. No nausea vomiting Review of Systems Review of Systems: All systems reviewed & are unremarkable except as noted in HPI and below Exam Narrative: General: Nontoxic-appearing female sitting up in bed. HEENT: PERRL, EOMI. Sclera anicteric. Oral mucosa moist. Neck: Supple. Respiratory: Lungs are clear to auscultation bilaterally. Cardiovascular: Regular rate and rhythm with S1-S2. Gastrointestinal: Abdomen is soft, nontender, and nondistended with positive bowel sounds. Skin: Warm and dry. Extremities: No cyanosis, clubbing, or edema. Radial and pedal pulses intact. Status post right [id number] amputation Neurological: Alert. Cranial nerves 2-12 are grossly intact. Residual left- sided weakness from prior stroke. Psychiatric: Cooperative with appropriate mood. Objective Data Vital Signs Vital Signs: Vital Signs - 24 hr 09/24/24 16:31 09/24/24 16:20 09/24/24 16:30 Temperature 97.4 F L Pulse Rate 93 93 Respiratory Rate 17 Blood Pressure 144/75 H Pulse Oximetry 100 100 Oxygen Delivery Room Air Room Air 09/24/24 17:37 09/24/24 18:48 09/24/24 22:53 Temperature 97.5 F L Pulse Rate 99 94 88 Respiratory Rate 20 16 18 Blood Pressure 173/73 H 125/66 136/64 Pulse Oximetry 100 100 97 Oxygen Delivery 09/25/24 00:00 09/24/24 23:00 09/24/24 22:49 Temperature Pulse Rate 87 88 Respiratory Rate Blood Pressure Pulse Oximetry Oxygen Delivery Room Air 09/25/24 00:00 09/25/24 02:00 09/25/24 04:00 Temperature Pulse Rate 84 80 Respiratory Rate Blood Pressure Pulse Oximetry Oxygen Delivery Room Air 09/25/24 04:00 09/25/24 04:00 09/25/24 06:00 Temperature 97.9 F Pulse Rate 79 84 80 Respiratory Rate 16 Blood Pressure 128/59 L Pulse Oximetry 96 Oxygen Delivery 09/25/24 08:00 09/25/24 08:00 09/25/24 10:00 Temperature 98.1 F Pulse Rate 88 88 90 Respiratory Rate 16 Blood Pressure 140/74 Pulse Oximetry 100 Oxygen Delivery 09/25/24 11:51 Temperature 97.9 F Pulse Rate 87 Respiratory Rate 16 Blood Pressure 144/74 H Pulse Oximetry 97 Oxygen Delivery Intake/Output Intake/Output: Intake & Output 09/22/24 09/23/24 09/24/24 09/25/24 23:59 23:59 23:59 23:59 Intake Total 1200 Output Total 300 Balance 900 Meds/Results Medications: Active Medications Generic Name Dose Route Start Last Admin Trade Name Freq PRN Reason Stop Dose Admin Hydrocodone Bitart/Acetaminophen 1 tab 09/24/24 20:16 Hydrocodone/Acetaminophen (*Crx) 5-325 Mg Tablet PO Q6H PRN Pain Rated 4-6 Hydrocodone Bitart/Acetaminophen 1 tab 09/25/24 01:15 Hydrocodone/Acetaminophen (*Crx) 10-325 Mg Tablet PO Q6H PRN Pain (Scale Score 7-10) Alprazolam 2 mg 09/25/24 01:15 Alprazolam (*Crx) 0.5 Mg Tablet PO BID PRN Anxiety Atorvastatin Calcium 20 mg 09/25/24 21:00 Atorvastatin 20 Mg Tablet PO HS STEVO Cyanocobalamin 1,000 mcg 09/25/24 09:00 09/25/24 08:56 Cyanocobalamin 1,000 Mcg Tablet PO 1,000 mcg DAILY STEVO Administration Dextrose 12.5 gm 09/24/24 20:31 Dextrose 50% 25 Gm/50 Ml Syringe IV PUSH PRN PRN Hypoglycemia Protocol Gabapentin 300 mg 09/25/24 09:00 09/25/24 08:57 Gabapentin 300 Mg Capsule PO 300 mg Q12HR STEVO Administration Glucagon 1 mg 09/24/24 20:31 Glucagon For Inj 1 Mg Vial IM PRN PRN Hypoglycemia Protocol Glucose 15 gm 09/24/24 20:31 Glucose Oral Gel 15 Gm Of Glucse In 37.5 Gm Tube PO PRN PRN Hypoglycemia Protocol Dextrose 1,000 mls @ 100 mls/hr 09/24/24 20:31 Dextrose 5% 1,000 Ml IVPB PRN PRN Hypoglycemia Protocol Insulin Aspart 3 - 6 units 09/25/24 08:00 09/25/24 12:32 Insulin Aspart (*Bkc) 100 Units/Ml SUB-Q Not Given TIDWM STEVO Protocol Insulin Aspart 1 - 3 units 09/24/24 21:00 09/25/24 00:22 Insulin Aspart (*Bkc) 100 Units/Ml SUB-Q Not Given HS [facility] Protocol Insulin Glargine 20 units 09/25/24 18:00 Insulin Glargine (*Bkc) 100 Units/Ml SUB-Q QPM STEVO Perflutren Lipid Microsphere 0 ml 09/24/24 20:31 Perflutren Lipid Microspheres 1.5 Ml Vial Diluted To 10 Ml Total Volume IV PUSH 09/27/24 20:31 ONCE PRN adequate visualization Protocol Quetiapine Fumarate 300 mg 09/25/24 21:00 Quetiapine Fumarate 100 Mg Tablet PO HS STEVO Sertraline HCl 100 mg 09/25/24 09:00 09/25/24 08:57 Sertraline Hcl 50 Mg Tablet PO 100 mg DAILY STEVO Administration Vitamin D 1,000 units 09/25/24 09:00 09/25/24 08:57 Cholecalciferol 1,000 Units Tablet PO 1,000 units DAILY STEVO Administration Radiology Results: ITS Impressions Chest X-Ray 09/24/24 16:55 IMPRESSION: No focal infiltrate or effusion. Labs Labs: Laboratory Results - last 24 hr 09/24/24 09/24/24 09/24/24 16:36 17:22 22:24 WBC 6.2 RBC 3.56 L Hgb 11.6 L Hct 34.8 L MCV 97.8 MCH 32.6 MCHC 33.3 RDW 12.8 Plt Count 231 MPV 11.1 H Immature Gran % (Auto) 0.2 Neut % (Auto) 55.3 Lymph % (Auto) 35.5 [place] % (Auto) 7.7 Eos % (Auto) 0.8 Baso % (Auto) 0.5 Lymph # (Auto) 2.20 [place] # (Auto) 0.5 Eos # (Auto) 0.1 Baso # (Auto) 0.0 Abs Immat Gran (auto) 0.01 Absolute Neuts (auto) 3.4 Absolute Nucleated RBC 0.000 Nucleated RBC % 0.0 PT 12.3 INR 0.9 APTT 20.4 L Sodium 139 Potassium 4.6 Chloride 106 Carbon Dioxide 29 Anion Gap 4 BUN 18 H Creatinine 0.70 Estim Creat Clear Calc 70 Estimated GFR > 60 Glucose 154 H POC Capillary Glucose Hemoglobin A1c 8.8 H Calcium 9.5 Magnesium Total Bilirubin 0.6 AST 30 ALT 29 Alkaline Phosphatase 117 Troponin I < 0.012 < 0.012 Total Protein 8.0 Albumin 4.2 Lipase 221 09/24/24 09/25/24 09/25/24 23:25 04:21 04:27 WBC 4.4 L RBC 3.39 L Hgb 10.9 L Hct 34.2 L MCV 100.9 H MCH 32.2 MCHC 31.9 L RDW 12.8 Plt Count 208 MPV 11.0 H Immature Gran % (Auto) 0.2 Neut % (Auto) 35.5 L Lymph % (Auto) 51.8 H [place] % (Auto) 10.4 H Eos % (Auto) 1.4 Baso % (Auto) 0.7 Lymph # (Auto) 2.30 [place] # (Auto) 0.5 Eos # (Auto) 0.1 Baso # (Auto) 0.0 Abs Immat Gran (auto) 0.01 Absolute Neuts (auto) 1.6 Absolute Nucleated RBC 0.000 Nucleated RBC % 0.0 PT INR APTT Sodium 138 Potassium 3.6 Chloride 106 Carbon Dioxide 27 Anion Gap 5 BUN 18 H Creatinine 0.70 Estim Creat Clear Calc 70 Estimated GFR > 60 Glucose 172 H POC Capillary Glucose 179 H Hemoglobin A1c Calcium 9.2 Magnesium 2.0 Total Bilirubin AST ALT Alkaline Phosphatase Troponin I < 0.012 Total Protein Albumin Lipase 09/25/24 09/25/24 07:54 11:40 WBC RBC Hgb Hct MCV MCH MCHC RDW Plt Count MPV Immature Gran % (Auto) Neut % (Auto) Lymph % (Auto) [place] % (Auto) Eos % (Auto) Baso % (Auto) Lymph # (Auto) [place] # (Auto) Eos # (Auto) Baso # (Auto) Abs Immat Gran (auto) Absolute Neuts (auto) Absolute Nucleated RBC Nucleated RBC % PT INR APTT Sodium Potassium Chloride Carbon Dioxide Anion Gap BUN Creatinine Estim Creat Clear Calc Estimated GFR Glucose POC Capillary Glucose 178 H 233 H Hemoglobin A1c Calcium Magnesium Total Bilirubin AST ALT Alkaline Phosphatase Troponin I Total Protein Albumin Lipase
[2024-09-25] MEDS: ALPRAZolam (*CRX) 0.5 MG TABLET 2 MG PO (13:21)
[2024-09-25] MEDS: INSULIN ASPART (*BKC) 100 UNITS/ML SUB-Q (13:21)
[2024-09-25] MEDS: HYDROcodone/acetaminophen (*CRX) 5-325 MG TABLET 1 TAB PO (13:22)
--- NOTE | 2024-09-25 14:04 | PC.NURSE ---
Reviewed and Approve charting for Kristine Moctezuma [facility]
[2024-09-25 16:23] LABS: Glucose Point of Care 183 mg/dl (65-105)
[2024-09-25] MEDS: INSULIN GLARGINE (*BKC) 100 UNITS/ML 20 UNITS SUB-Q (16:23)
[2024-09-25 20:04] LABS: Glucose Point of Care 203 mg/dl (65-105)
--- NOTE | 2024-09-25 20:31 | ECHO_ITS ---
Patient Info Name: Yeny Muniz Age: 64 years : 1960 Gender: Female Ht: 67 in Wt: 159 lbs BSA: 1.86 m2 HR: 80 bpm BP: 128 / 59 mmHg Heart Rhythm: Sinus Rhythm Technical Quality: Good Exam Date: 09/25/2024 7:43 AM Exam Location: Echo Lab Patient Status: Inpatient Admit Date: 09/24/2024 Staff Ordering Physician: Daniela Coelho PA-C Supervisor Forming Department: Michelle Wright RDCS Attending Provider: Guicho Leahy MD Referring Physician: Meliton MARIA; Exam Type: CA echo doppler color flow Study Info Indications - chest pain Complete two-dimensional, color flow and Doppler transthoracic echocardiogram is performed. Summary 1. Complete two-dimensional, color flow and Doppler transthoracic echocardiogram is performed. 2. Left ventricular systolic function is normal, estimated at 60-65%. 3. There is mildly increased left ventricular wall thickness. 4. The left ventricular diastolic function is grade I diastolic dysfunction. 5. There is trace mitral valve regurgitation. 6. There is mild to moderate tricuspid valve regurgitation. 7. Severe pulmonary hypertension, estimated pulmonary arterial systolic pressure is 56 mmHg. Left Ventricle Left ventricular chamber dimension is normal. Left ventricular systolic function is normal, estimated at 60-65%. There is mildly increased left ventricular wall thickness. Left ventricular septal wall motion is normal. The left ventricular diastolic function is grade I diastolic dysfunction. Right Ventricle Right ventricular chamber dimension is normal. Right ventricular systolic function is normal. Left Atria Left atrial chamber dimension is normal. Right Atria Right atrial chamber dimension is normal. Atrial Septum Intact interatrial septum visualized by color flow imaging. Aortic Valve The aortic valve is trileaflet. There is no aortic valve sclerosis. There is no aortic valve stenosis. There is no aortic valve regurgitation. Pulmonic Valve The pulmonic valve is normal. There is no pulmonic valve stenosis. There is no pulmonic regurgitation. Mitral Valve The mitral valve has normal leaflets. There is no mitral valve stenosis. There is trace mitral valve regurgitation. Tricuspid Valve The tricuspid valve leaflets are normal. There is no significant tricuspid valve stenosis. There is mild to moderate tricuspid valve regurgitation. Severe pulmonary hypertension, estimated pulmonary arterial systolic pressure is 56 mmHg. Pericardium/Pleural The pericardium appears normal. There is no pericardial effusion. Inferior Vena Cava Normal inferior vena cava with >50% collapse upon inspiration consistent with Empty right atrial pressure, 5 mmHg. Aorta The aortic root size at the sinus of Valsalva is normal. The prox ascending aorta size is normal. Left Ventricular Outflow Tract Name Value Normal LVOT 2D LVOT Diameter 2.2 cm LVOT Doppler LVOT Peak Gradient 2 mmHg LVOT Mean Gradient 1 mmHg LVOT VTI 19 cm LVOT VTI/AV VTI Ratio 0.9 LVOT Stroke Volume 69 ml LVOT CO 5.7 l/min LVOT CI 3.1 l/min/m2 Mitral Valve Name Value Normal MV Doppler MV Decel [place] 556 cm/s2 MV PHT 52 ms MV Area (PHT) 4.2 cm2 4.0-5.0 MV Diastolic Function MV E Peak Velocity 100 cm/s MV A Peak Velocity 136 cm/s MV E/A 0.7 MV Decel Time 179 ms MV Annular TDI MV E/e' (Septal) 21.4 <=8.0 MV E/e' (Lateral) 18.6 <=8.0 MV E/e' (Average) 20.0 Tricuspid Valve Name Value Normal TV Regurgitation Doppler TR Peak Velocity 358 cm/s TR Peak Gradient 31 mmHg Estimated PAP/RSVP RA Pressure 5 mmHg <=5 PA Systolic Pressure 56 mmHg <36 RV Systolic Pressure 56 mmHg <36 Aortic Valve Name Value Normal AV Doppler AV Peak Velocity 86 cm/s AV Peak Gradient 3 mmHg AV Mean Gradient 2 mmHg AV VTI 20 cm AV Area (Cont Eq VTI) 3.5 cm2 >=3.0 AV Area (Cont Eq Cristobal) 3.2 cm2 AV Regurgitation 2D LVOT Area 3.7 cm2 Ventricles Name Value Normal LV Dimensions 2D/MM IVS Diastolic Thickness (2D) 1.2 cm 0.6-1.0 LVID Diastole (2D) 4.4 cm 3.8-5.2 LVIW Diastolic Thickness (2D) 1.2 cm 0.6-0.9 LVID Systole (2D) 2.9 cm 2.2-3.5 LVOT Diameter 2.2 cm LV Mass (2D Cubed) 190.54 g 67.00-162.00 LV Mass Index (2D Cubed) 103 g/m2 43-95 Relative Wall Thickness (2D) 0.56 LV Fractional Shortening/Ejection Fraction 2D/MM LV Fractional Shortening (2D) 33 % 27-45 LV EF (2D Teicholz) 62 % 54-74 LV Diastolic Volume (4C MOD) 111 ml LV EF (4C MOD) 61 % LV Diastolic Volume (2C MOD) 97 ml LV EF (2C MOD) 52 % LV Diastolic Volume (BP MOD) 103 ml 46-106 LV Diastolic Volume Index (BP MOD) 56 ml/m2 29-61 LV Systolic Volume (BP MOD) 47 ml 14-42 LV Systolic Volume Index (BP MOD) 25 ml/m2 8-24 LV EF (BP MOD) 55 % 54-74 LV Diastolic Length (4C) 8.4 cm LV Systolic Length (4C) 7.3 cm LV Stroke Volume (4C MOD) 68 ml Atria Name Value Normal LA Dimensions LA Volume (4C A-L) 54 ml LA Volume (BP A-L) 57 ml RA Dimensions RA Area (4C) 13.4 cm2 <=18.0 Report Signatures
[2024-09-26] VITALS: BP 122/55; PULSE 77; RESP 16; TEMP 36.6; O2SAT 96
[2024-09-26] MEDS: QUEtiapine FUMARATE 100 MG TABLET 300 MG PO ×2 (01:23→20:19)
--- NOTE | 2024-09-26 04:51 | PC.NURSE ---
This patient, Yeny Muniz, was transferred to [[facility] ] on 09/26/24 at 0440. Personal belongings sent with patient. Report given to [Tolu ]. Appropriate documentation sent with patient.
--- NOTE | 2024-09-26 05:11 | ADMGEN ---
This patient, Yeny Muniz, was transferred to [facility] Surg Room 317-01. Patient/family oriented to hospital policies and general routines including ID bracelet, bed and alarms, visiting hours, pain management, procedures, bathroom and other care routines, personal items, smoking policy, room service/diet, and visiting hours. cigarettes and vape were placed in safe in the med room Information on how to activate the Rapid Response Team has been discussed. Patient/Family are encouraged to report perceived risks to care and to ask questions if they do not understand what they are told or what they should do.
[2024-09-26 05:29] VITALS: BP 118/56; PULSE 73; RESP 18; TEMP 36.8; O2SAT 96
[2024-09-26 08:35] LABS: Glucose Point of Care 212 mg/dl (65-105)
[2024-09-26] MEDS: CYANOCOBALAMIN 1,000 MCG TABLET 1000 MCG PO (08:38)
[2024-09-26] MEDS: CHOLECALCIFEROL 1,000 UNITS TABLET 1000 UNITS PO (08:38)
[2024-09-26] MEDS: SERTRALINE HCL 50 MG TABLET 100 MG PO (08:38)
[2024-09-26] MEDS: GABAPENTIN 300 MG CAPSULE PO ×2 (08:38→20:19)
[2024-09-26] MEDS: INSULIN ASPART (*BKC) 100 UNITS/ML SUB-Q ×2 (08:39→16:54)
[2024-09-26 11:30] LABS: Glucose Point of Care 189 mg/dl (65-105)
--- NOTE | 2024-09-26 12:30 | PM.IMPN ---
Progress Note: A&P Assessment and Plan (1) Chest pain: Code(s): R07.9 - Chest pain, unspecified Status: Acute (2) Homeless: Code(s): Z59.00 - Homelessness unspecified Status: Acute (3) Hyperlipidemia: Code(s): E78.5 - Hyperlipidemia, unspecified Status: Acute (4) Insulin dependent type 2 diabetes mellitus: Code(s): E11.9 - Type 2 diabetes mellitus without complications; Z79.4 - long term care social worker (current) use of insulin Status: Acute (5) Psychiatric illness: Code(s): F99 - Mental disorder, not otherwise specified Status: Acute (6) Tobacco dependence: Code(s): F17.200 - Nicotine dependence, unspecified, uncomplicated Status: Chronic Plan This is a 64-year-old female smoker with hypertension, hyperlipidemia, insulin dependent type 2 diabetes mellitus, depression, anxiety, and bipolar disorder who presented to the emergency department via EMS place of chest pain. The patient provides the following history. She has been at [facility] in [place] for sometime however was angry at them today about not being able to use her electric wheelchair and she signed out from their facility against medical advice. She then refused to leave the facility after signing the form and they called the police who then in turn called EMS to bring her to the hospital as she said she had chest pain. At this time she is not having any chest pain and reports that it was only when she was upset. She denies associated syncope, near syncope, nausea, vomiting, sweats, and calf pain. In the ED: She was afebrile on arrival with stable vital signs. CBC and CMP were pretty unremarkable and comparable to prior labs. Initial troponin was negative. EKG showed sinus rhythm without ST segment changes. Chest x-ray was clear. She was given aspirin 324 mg and a [place] and is being admitted in this setting to rule out acute coronary syndrome and for placement as she is not allowed back at [facility]. ACS ruled out with negative troponins. Chest pain is atypical. Echocardiogram With normal AF [id number] TR moderate pulmonary hypertension Disposition: She is not allowed back at [facility] after signing out against medical advice and reports not having any family or friends to stay with. Care coordination consulted as she will need placement. Hypertension home medication Diabetes home medication Peripheral neuropathy History of stroke Recent center ideation psych admission DVT prophylaxis SCDs Subjective Date/time seen: 09/26/24 12:30 Interval history: no overnight events. No new complaints. Reports chronic pain. No chest pain or shortness of breath. Review of Systems Review of Systems: All systems reviewed & are unremarkable except as noted in HPI and below Exam Narrative: General: Nontoxic-appearing female sitting up in bed. HEENT: PERRL, EOMI. Sclera anicteric. Oral mucosa moist. Neck: Supple. Respiratory: Lungs are clear to auscultation bilaterally. Cardiovascular: Regular rate and rhythm with S1-S2. Gastrointestinal: Abdomen is soft, nontender, and nondistended with positive bowel sounds. Skin: Warm and dry. Extremities: No cyanosis, clubbing, or edema. Radial and pedal pulses intact. Status post right [id number] amputation Neurological: Alert. Cranial nerves 2-12 are grossly intact. Residual left-sided weakness from prior stroke. Psychiatric: Cooperative with appropriate mood. Objective Data Vital Signs Vital Signs: Vital Signs - 24 hr 09/25/24 16:00 09/25/24 19:54 09/25/24 20:00 Temperature 97.9 F 97.6 F Pulse Rate 88 77 Respiratory Rate 16 16 Blood Pressure 113/63 116/53 L Pulse Oximetry 100 97 Oxygen Delivery Room Air 09/26/24 00:00 09/26/24 05:29 09/26/24 08:00 Temperature 98 F 98.2 F Pulse Rate 77 73 Respiratory Rate 16 18 Blood Pressure 122/55 L 118/56 L Pulse Oximetry 96 96 Oxygen Delivery Room Air Intake/Output Intake/Output: Intake & Output 09/23/24 09/24/24 09/25/24 09/26/24 23:59 23:59 23:59 23:59 Intake Total 1960 240 Output Total 750 Balance 1210 240 Meds/Results Medications: Active Medications Generic Name Dose Route Start Last Admin Trade Name Freq PRN Reason Stop Dose Admin Hydrocodone Bitart/Acetaminophen 1 tab 09/24/24 20:16 09/25/24 13:22 Hydrocodone/Acetaminophen (*Crx) 5-325 Mg Tablet PO 1 tab Q6H PRN Administration Pain Rated 4-6 Hydrocodone Bitart/Acetaminophen 1 tab 09/25/24 01:15 Hydrocodone/Acetaminophen (*Crx) 10-325 Mg Tablet PO Q6H PRN Pain (Scale Score 7-10) Alprazolam 2 mg 09/25/24 01:15 09/25/24 13:21 Alprazolam (*Crx) 0.5 Mg Tablet PO 2 mg BID PRN Administration Anxiety Atorvastatin Calcium 20 mg 09/25/24 21:00 09/25/24 20:05 Atorvastatin 20 Mg Tablet PO Not Given HS STEVO Cyanocobalamin 1,000 mcg 09/25/24 09:00 09/26/24 08:38 Cyanocobalamin 1,000 Mcg Tablet PO 1,000 mcg DAILY STEVO Administration Dextrose 12.5 gm 09/24/24 20:31 Dextrose 50% 25 Gm/50 Ml Syringe IV PUSH PRN PRN Hypoglycemia Protocol Gabapentin 300 mg 09/25/24 09:00 09/26/24 08:38 Gabapentin 300 Mg Capsule PO 300 mg Q12HR STEVO Administration Glucagon 1 mg 09/24/24 20:31 Glucagon For Inj 1 Mg Vial IM PRN PRN Hypoglycemia Protocol Glucose 15 gm 09/24/24 20:31 Glucose Oral Gel 15 Gm Of Glucse In 37.5 Gm Tube PO PRN PRN Hypoglycemia Protocol Dextrose 1,000 mls @ 100 mls/hr 09/24/24 20:31 Dextrose 5% 1,000 Ml IVPB PRN PRN Hypoglycemia Protocol Insulin Aspart 3 - 6 units 09/25/24 08:00 09/26/24 08:39 Insulin Aspart (*Bkc) 100 Units/Ml SUB-Q 3 units TIDWM STEOV Administration Protocol Insulin Aspart 1 - 3 units 09/24/24 21:00 09/25/24 20:05 Insulin Aspart (*Bkc) 100 Units/Ml SUB-Q Not Given HS STEVO Protocol Insulin Glargine 20 units 09/25/24 18:00 09/25/24 16:23 Insulin Glargine (*Bkc) 100 Units/Ml SUB-Q 20 units QPM STEVO Administration Perflutren Lipid Microsphere 0 ml 09/24/24 20:31 Perflutren Lipid Microspheres 1.5 Ml Vial Diluted To 10 Ml Total Volume IV PUSH 09/27/24 20:31 ONCE PRN adequate visualization Protocol Quetiapine Fumarate 300 mg 09/25/24 21:00 09/26/24 01:23 Quetiapine Fumarate 100 Mg Tablet PO 300 mg HS STEVO Administration Sertraline HCl 100 mg 09/25/24 09:00 09/26/24 08:38 Sertraline Hcl 50 Mg Tablet PO 100 mg DAILY STEVO Administration Vitamin D 1,000 units 09/25/24 09:00 09/26/24 08:38 Cholecalciferol 1,000 Units Tablet PO 1,000 units DAILY STEVO Administration Radiology Results: ITS Impressions Chest X-Ray 09/24/24 16:55 IMPRESSION: No focal infiltrate or effusion. Labs Labs: Laboratory Results - last 24 hr 09/25/24 09/25/24 09/26/24 16:17 19:57 08:12 POC Capillary Glucose 183 H 203 H 212 H 09/26/24 11:27 POC Capillary Glucose 189 H
[2024-09-26 14:00] VITALS: BP 152/81; PULSE 89; RESP 18; TEMP 36.4; O2SAT 100
[2024-09-26 16:38] LABS: Glucose Point of Care 202 mg/dl (65-105)
[2024-09-26] MEDS: INSULIN GLARGINE (*BKC) 100 UNITS/ML 20 UNITS SUB-Q (16:56)
[2024-09-26] MEDS: ATORVASTATIN 20 MG TABLET PO (20:19)
[2024-09-26 21:09] LABS: Glucose Point of Care 171 mg/dl (65-105)
[2024-09-26 21:20] VITALS: BP 114/96; PULSE 87; RESP 18; TEMP 36.4; O2SAT 99
[2024-09-27 05:52] VITALS: BP 118/69; PULSE 88; RESP 18; TEMP 36.4; O2SAT 95
[2024-09-27] MEDS: CYANOCOBALAMIN 1,000 MCG TABLET 1000 MCG PO (08:32)
[2024-09-27] MEDS: GABAPENTIN 300 MG CAPSULE PO ×2 (08:32→21:04)
[2024-09-27] MEDS: SERTRALINE HCL 50 MG TABLET 100 MG PO (08:32)
[2024-09-27] MEDS: CHOLECALCIFEROL 1,000 UNITS TABLET 1000 UNITS PO (08:32)
[2024-09-27 11:24] LABS: Glucose Point of Care 245 mg/dl (65-105)
[2024-09-27 11:24] LABS: Glucose Point of Care 220 mg/dl (65-105)
[2024-09-27] MEDS: INSULIN ASPART (*BKC) 100 UNITS/ML SUB-Q ×3 (11:40→21:18)
[2024-09-27] MEDS: ALPRAZolam (*CRX) 0.5 MG TABLET 2 MG PO (11:56)
--- NOTE | 2024-09-27 12:41 | PM.IMPN ---
Progress Note: A&P Assessment and Plan (1) Chest pain: Code(s): R07.9 - Chest pain, unspecified Status: Acute (2) Homeless: Code(s): Z59.00 - Homelessness unspecified Status: Acute (3) Hyperlipidemia: Code(s): E78.5 - Hyperlipidemia, unspecified Status: Acute (4) Insulin dependent type 2 diabetes mellitus: Code(s): E11.9 - Type 2 diabetes mellitus without complications; Z79.4 - buttermaker helper (current) use of insulin Status: Acute (5) Psychiatric illness: Code(s): F99 - Mental disorder, not otherwise specified Status: Acute (6) Tobacco dependence: Code(s): F17.200 - Nicotine dependence, unspecified, uncomplicated Status: Chronic Plan This is a 64-year-old female smoker with hypertension, hyperlipidemia, insulin dependent type 2 diabetes mellitus, depression, anxiety, and bipolar disorder who presented to the emergency department via EMS place of chest pain. The patient provides the following history. She has been at [facility] in [place] for sometime however was angry at them today about not being able to use her electric wheelchair and she signed out from their facility against medical advice. She then refused to leave the facility after signing the form and they called the police who then in turn called EMS to bring her to the hospital as she said she had chest pain. At this time she is not having any chest pain and reports that it was only when she was upset. She denies associated syncope, near syncope, nausea, vomiting, sweats, and calf pain. In the ED: She was afebrile on arrival with stable vital signs. CBC and CMP were pretty unremarkable and comparable to prior labs. Initial troponin was negative. EKG showed sinus rhythm without ST segment changes. Chest x-ray was clear. She was given aspirin 324 mg and a [place] and is being admitted in this setting to rule out acute coronary syndrome and for placement as she is not allowed back at [facility]. ACS ruled out with negative troponins. Chest pain is atypical. Echocardiogram With normal AF [id number] TR moderate pulmonary hypertension Disposition: She is not allowed back at [facility] after signing out against medical advice and reports not having any family or friends to stay with. Care coordination consulted as she will need placement. Hypertension home medication Diabetes home medication Peripheral neuropathy History of stroke Recent center ideation psych admission DVT prophylaxis SCDs Subjective Date/time seen: 09/27/24 12:41 Interval history: No overnight events. Denies any chest pain. Review of Systems Review of Systems: All systems reviewed & are unremarkable except as noted in HPI and below Exam Narrative: General: Nontoxic-appearing female sitting up in bed. HEENT: PERRL, EOMI. Sclera anicteric. Oral mucosa moist. Neck: Supple. Respiratory: Lungs are clear to auscultation bilaterally. Cardiovascular: Regular rate and rhythm with S1-S2. Gastrointestinal: Abdomen is soft, nontender, and nondistended with positive bowel sounds. Skin: Warm and dry. Extremities: No cyanosis, clubbing, or edema. Radial and pedal pulses intact. Status post right [id number] amputation Neurological: Alert. Cranial nerves 2-12 are grossly intact. Residual left-sided weakness from prior stroke. Psychiatric: Cooperative with appropriate mood. Objective Data Vital Signs Vital Signs: Vital Signs - 24 hr 09/27/24 14:00 09/27/24 20:00 09/28/24 06:00 Temperature 96.4 F L 98.0 F 97.0 F L Pulse Rate 99 94 106 H Respiratory Rate 18 16 20 Blood Pressure 114/64 121/51 L 98/69 L Pulse Oximetry 100 91 95 Oxygen Delivery 09/28/24 08:34 09/28/24 08:00 Temperature Pulse Rate Respiratory Rate Blood Pressure 100/54 L Pulse Oximetry 95 Oxygen Delivery Room Air Intake/Output Intake/Output: Intake & Output 09/25/24 09/26/24 09/27/24 09/28/24 23:59 23:59 23:59 23:59 Intake Total 1960 720 920 218 Output Total 750 500 Balance 1210 720 420 218 Meds/Results Medications: Active Medications Generic Name Dose Route Start Last Admin Trade Name Freq PRN Reason Stop Dose Admin Hydrocodone Bitart/Acetaminophen 1 tab 09/24/24 20:16 09/25/24 13:22 Hydrocodone/Acetaminophen (*Crx) 5-325 Mg Tablet PO 1 tab Q6H PRN Administration Pain Rated 4-6 Hydrocodone Bitart/Acetaminophen 1 tab 09/25/24 01:15 Hydrocodone/Acetaminophen (*Crx) 10-325 Mg Tablet PO Q6H PRN Pain (Scale Score 7-10) Alprazolam 2 mg 09/25/24 01:15 09/28/24 08:41 Alprazolam (*Crx) 0.5 Mg Tablet PO 2 mg BID PRN Administration Anxiety Atorvastatin Calcium 20 mg 09/25/24 21:00 09/27/24 21:04 Atorvastatin 20 Mg Tablet PO 20 mg HS STEVO Administration Cyanocobalamin 1,000 mcg 09/25/24 09:00 09/28/24 08:37 Cyanocobalamin 1,000 Mcg Tablet PO 1,000 mcg DAILY STEVO Administration Dextrose 12.5 gm 09/24/24 20:31 Dextrose 50% 25 Gm/50 Ml Syringe IV PUSH PRN PRN Hypoglycemia Protocol Gabapentin 300 mg 09/25/24 09:00 09/28/24 08:37 Gabapentin 300 Mg Capsule PO 300 mg Q12HR STEVO Administration Glucagon 1 mg 09/24/24 20:31 Glucagon For Inj 1 Mg Vial IM PRN PRN Hypoglycemia Protocol Glucose 15 gm 09/24/24 20:31 Glucose Oral Gel 15 Gm Of Glucse In 37.5 Gm Tube PO PRN PRN Hypoglycemia Protocol Dextrose 1,000 mls @ 100 mls/hr 09/24/24 20:31 Dextrose 5% 1,000 Ml IVPB PRN PRN Hypoglycemia Protocol Insulin Aspart 3 - 6 units 09/25/24 08:00 09/28/24 11:38 Insulin Aspart (*Bkc) 100 Units/Ml SUB-Q Not Given TIDWM STEVO Protocol Insulin Aspart 1 - 3 units 09/24/24 21:00 09/27/24 21:18 Insulin Aspart (*Bkc) 100 Units/Ml SUB-Q 1 units HS STEVO Administration Protocol Insulin Glargine 20 units 09/25/24 18:00 09/27/24 18:34 Insulin Glargine (*Bkc) 100 Units/Ml SUB-Q 20 units QPM STEVO Administration Melatonin 3 mg 09/26/24 21:35 09/27/24 21:04 Melatonin 3 Mg Tablet PO 3 mg HS STEVO Administration Quetiapine Fumarate 300 mg 09/25/24 21:00 09/27/24 21:04 Quetiapine Fumarate 100 Mg Tablet PO 300 mg HS STEVO Administration Sertraline HCl 100 mg 09/25/24 09:00 09/28/24 08:37 Sertraline Hcl 50 Mg Tablet PO 100 mg DAILY STEVO Administration Vitamin D 1,000 units 09/25/24 09:00 09/28/24 08:37 Cholecalciferol 1,000 Units Tablet PO 1,000 units DAILY STEVO Administration Radiology Results: ITS Impressions Chest X-Ray 09/24/24 16:55 IMPRESSION: No focal infiltrate or effusion. Labs Labs: Laboratory Results - last 24 hr 09/27/24 09/27/24 09/28/24 17:59 20:46 07:44 POC Capillary Glucose 261 H 224 H 250 H 09/28/24 11:30 POC Capillary Glucose 147 H
[2024-09-27 13:21] VITALS: BMI 22.1
[2024-09-27 14:00] VITALS: BP 114/64; PULSE 99; RESP 18; TEMP 35.8; O2SAT 100
[2024-09-27 18:04] LABS: Glucose Point of Care 261 mg/dl (65-105)
--- NOTE | 2024-09-27 18:28 | PC.NURSE ---
Patient's daughter bedside.. Patient's daughter stated [facility] is closer to her and she would like her mom to go somewhere in [facility] . Patient then stated she doesnt want to go to [place] . Notified [facility] in ED who advised he was unable to help with anything further tonight , notified [facility] and Dr. Leahy. Patient IV ok to stay out per Dr. Leahy.
[2024-09-27] MEDS: INSULIN GLARGINE (*BKC) 100 UNITS/ML 20 UNITS SUB-Q (18:34)
[2024-09-27 20:00] VITALS: BP 121/51; PULSE 94; RESP 16; TEMP 36.7; O2SAT 91
[2024-09-27] MEDS: MELATONIN 3 MG TABLET PO (21:04)
[2024-09-27] MEDS: ATORVASTATIN 20 MG TABLET PO (21:04)
[2024-09-27] MEDS: QUEtiapine FUMARATE 100 MG TABLET 300 MG PO (21:04)
[2024-09-27 21:27] LABS: Glucose Point of Care 224 mg/dl (65-105)
[2024-09-28 06:00] VITALS: BP 98/69; PULSE 106; RESP 20; TEMP 36.1; O2SAT 95
[2024-09-28 07:47] LABS: Glucose Point of Care 250 mg/dl (65-105)
[2024-09-28 08:00] VITALS: O2SAT 95
[2024-09-28 08:34] VITALS: BP 100/54
[2024-09-28] MEDS: GABAPENTIN 300 MG CAPSULE PO (08:37)
[2024-09-28] MEDS: SERTRALINE HCL 50 MG TABLET 100 MG PO (08:37)
[2024-09-28] MEDS: CYANOCOBALAMIN 1,000 MCG TABLET 1000 MCG PO (08:37)
[2024-09-28] MEDS: CHOLECALCIFEROL 1,000 UNITS TABLET 1000 UNITS PO (08:37)
[2024-09-28] MEDS: INSULIN ASPART (*BKC) 100 UNITS/ML SUB-Q (08:37)
[2024-09-28] MEDS: ALPRAZolam (*CRX) 0.5 MG TABLET 2 MG PO (08:41)
[2024-09-28 11:33] LABS: Glucose Point of Care 147 mg/dl (65-105)
--- NOTE | 2024-09-28 12:44 | P.DS_ITS ---
DS: Admitting Diagnosis Discharge Date 09/27/2024 Admitting Diagnosis chest pain DS: Discharge Diagnosis Discharge Diagnosis (1) Chest pain: Code(s): R07.9 - Chest pain, unspecified Status: Acute (2) Homeless: Code(s): Z59.00 - Homelessness unspecified Status: Acute (3) Hyperlipidemia: Code(s): E78.5 - Hyperlipidemia, unspecified Status: Acute (4) Insulin dependent type 2 diabetes mellitus: Code(s): E11.9 - Type 2 diabetes mellitus without complications; Z79.4 - nursing home (current) use of insulin Status: Acute (5) Psychiatric illness: Code(s): F99 - Mental disorder, not otherwise specified Status: Acute (6) Tobacco dependence: Code(s): F17.200 - Nicotine dependence, unspecified, uncomplicated Status: Chronic DS: Summary Hospital Course Hospital Course: This is a 64-year-old female smoker with hypertension, hyperlipidemia, insulin dependent type 2 diabetes mellitus, depression, anxiety, and bipolar disorder who presented to the emergency department via EMS place of chest pain. The patient provides the following history. She has been at [facility] in [place] for sometime however was angry at them today about not being able to use her electric wheelchair and she signed out from their facility against medical advice. She then refused to leave the facility after signing the form and they called the police who then in turn called EMS to bring her to the hospital as she said she had chest pain. At this time she is not having any chest pain and reports that it was only when she was upset. She denies associated syncope, near syncope, nausea, vomiting, sweats, and calf pain. In the ED: She was afebrile on arrival with stable vital signs. CBC and CMP were pretty unremarkable and comparable to prior labs. Initial troponin was negative. EKG showed sinus rhythm without ST segment changes. Chest x-ray was clear. She was given aspirin 324 mg and a [place] and is being admitted in this setting to rule out acute coronary syndrome and for placement as she is not allowed back at [facility] [place]. ACS ruled out with negative troponins. Chest pain is atypical. Echocardiogram With normal AF [id number] TR moderate pulmonary hypertension Disposition: She is not allowed back at [facility] [place] after signing out against medical advice and reports not having any family or friends to stay with. Care coordination consulted and was accepted at [facility] Hypertension home medication Diabetes home medication Peripheral neuropathy History of stroke Recent center ideation psych admission DVT prophylaxis SCDs Time Spent with Patient Time attestation: Total time spent providing and/or coordinating discharge services: 35 mins Exam Narrative: General: Nontoxic-appearing female sitting up in bed. HEENT: PERRL, EOMI. Sclera anicteric. Oral mucosa moist. Neck: Supple. Respiratory: Lungs are clear to auscultation bilaterally. Cardiovascular: Regular rate and rhythm with S1-S2. Gastrointestinal: Abdomen is soft, nontender, and nondistended with positive bowel sounds. Skin: Warm and dry. Extremities: No cyanosis, clubbing, or edema. Radial and pedal pulses intact. Status post right [id number] amputation Neurological: Alert. Cranial nerves 2-12 are grossly intact. Residual left- sided weakness from prior stroke. Psychiatric: Cooperative with appropriate mood. DS: Data Data Completed and Pending Labs on day of discharge: Labs from last 24 hours 09/27/24 09/27/24 09/26/24 11:21 08:08 20:19 POC Capillary Glucose 245 H 220 H 171 H 09/26/24 16:35 POC Capillary Glucose 202 H Imaging Radiologist's impression: ITS Impressions Chest X-Ray 09/24/24 16:55 IMPRESSION: No focal infiltrate or effusion. Discharge Plan Discharge Attending physician on discharge: Guicho Leahy Discharging Clinician: Guicho Leahy Anticipated Discharge Date/Time: 09/27/24 15:36 Patient Disposition: [facility] Activity: as tolerated Diet: heart healthy Patient Instructions: Antibiotic Form, Chest Pain (GEN) Stand Alone Forms: General Discharge Information, Retirement Discharge Follow-up/Referrals: UNKNOWN,DOCTOR [Primary Care Provider] - 1 Week (PCP) Discharge Medications: Continued insulin glargine [Lantus U-100 Insulin] 100 unit/mL solution 20 unit subcut QPM alprazolam 2 mg tablet 2 mg PO BID PRN (Reason: Anxiety) atorvastatin 20 mg tablet 20 mg PO HS cyanocobalamin (vitamin B-12) 1,000 mcg Tablet 1,000 mcg PO DAILY cholecalciferol (vitamin D3) 25 mcg (1,000 unit) Capsule 25 mcg PO DAILY hydrocodone-acetaminophen 10-325 mg tablet 1 tablet PO Q6H PRN (Reason: Pain (Scale Score 7-10)) ondansetron 4 mg tablet,disintegrating 4 mg PO Q8H PRN (Reason: Nausea And Vomiting) sertraline 100 mg tablet 100 mg PO DAILY gabapentin 300 mg capsule 300 mg PO Q12H quetiapine 300 mg tablet 300 mg PO HS Date of admission: 09/24/24 20:16 Primary Care Provider: UNKNOWN,DOCTOR Admitting Provider: Guicho Leahy Attending physician on admission: Guicho Leahy Condition: Stable
[2024-09-28 13:45] VITALS: BP 118/67; PULSE 86; RESP 16; TEMP 36.6; O2SAT 97
== END 2024-09-28 15:39 ==
LOC: ANHED 18:01 → ANHIMU 21:36 → ANH3MEDSUR 09-26 04:56
PROVIDERS: Emergency Medicine; Physician Assistant; Admitting Provider Internal Medicine; Emergency Provider Physician Assistant; Visit Provider Internal Medicine
DX: R07.89 Other chest pain (principal); E78.5 Hyperlipidemia, unspecified; Z79.4 Long term (current) use of insulin; Z59.00 Homelessness unspecified; F41.8 Other specified anxiety disorders; K21.9 Gastro-esophageal reflux disease without esophagitis; E11.42 Type 2 diabetes mellitus with diabetic polyneuropathy; F17.210 Nicotine dependence, cigarettes, uncomplicated
CPT/HCPCS: 36415; 71046; 80048; 80053; 82948; 83036; 83690; 83735; 84484; 85025; 85610; 85730; 93005; 93306; 97161; 97165; 99285; A9270; G0378; J1815